=== PATIENT | female | born 1935 | race Caucasian/White ===

== ENCOUNTER 2016-06-08 14:59 | Emergency (ER) | payer MEDICARE, OTHER ==
--- NOTE | 2016-06-08 15:47 | RAD ---
INDICATION: Chest pain COMPARISON: March 25, 2016 TECHNIQUE: An AP portable view obtained at 1540 hours is submitted. FINDINGS: Bones/Soft Tissues: There are no acute bony findings. There is right shoulder arthroplasty Cardiomediastinal: The cardiomediastinal silhouette is normal. Lungs: There are no infiltrates. Pleura: There are no pleural effusions. Other: None IMPRESSION: NO ACTIVE DISEASE.
[2016-06-08 15:50] LABS: Hematocrit 35 % (35-47); Hemoglobin 11.7 g/dl (12.0-16.0); Mean Corpuscular HGB Conc 33 g/dl (31-36); Mean Corpuscular Hemoglobin 33 pg (27-31); Mean Corpuscular Volume 99 fL (80-97); Mean Platelet Volume 7 um3 (7.4-10.4); Red Blood Count 3.55 10^6/ul (4.0-5.4); Red Cell Distribution Width 14 % (10.5-15)
[2016-06-08 16:03] LABS: BUN/Creatinine Ratio 30.3 (8-20); Calcium 9.1 mg/dL (8.6-10.3); EGFR African American 55.7 (>60); EGFR Non-African American 43.3 (>60); Globulin 2.9 g/dL (2-4); Magnesium 1.9 mg/dL (1.9-2.7); Potassium 3.7 mmol/L (3.5-5.0); Total Bilirubin 0.3 mg/dL (0.2-1.0); Total Protein 6.9 g/dL (6.4-8.9)
[2016-06-08 16:05] LABS: Troponin I 0.02 ng/mL (<0.04)
[2016-06-08 16:36] LABS: TSH (Thyroid Stimulating Horm) 4.53 mcIU/mL (0.34-5.60)
[2016-06-08 17:00] LABS: Urine Bacteria Absent (Absent); Urine Bilirubin Negative (Negative); Urine Glucose Negative (Negative); Urine Nitrite Negative (Negative)
[2016-06-08 20:02] VITALS: BP 141/76
--- NOTE | 2016-06-08 22:03 | ED ---
Gavino Alicia Billy, scribed for Christiano Walton MD on 06/08/16 at 1532 . Palpitations / Dysrhythmia - HPI Summary HPI Summary: Patient is an 81 year-old female coming to [facility] presenting with intermittent rapid HR starting at 1230 today. Her symptoms were improved with rest, worse with ambulation. They have improved since onset. She states that she had a moderate CAMPOVERDE at that time, but that has resolved at this time. She denies any CP , SOB, headache, dizziness, nausea, or vomiting. Denies any other symptoms. She states that it felt like a previous episode of afib in November, when she was seen in the ED and cardioverted. - History of Current Complaint Chief Complaint: EDDysrhythmPalp Time Seen by Provider: 06/08/16 15:24 Hx Obtained From: Patient Onset/Duration: Gradual Onset Timing: Intermittent Episodes Lasting: Severity Initially: Moderate Severity Currently: Moderate Character: Fast Aggravating: Exertion Alleviating: Rest - Allergy/Home Medications Allergies/Adverse Reactions: Allergies Allergy/AdvReac Type Severity Reaction Status Date / Time No Known Drug Allergy Allergy See Comment Verified 12/22/15 13:18 Ciprofloxacin AdvReac Nausea Verified 12/22/15 13:17 Diclofenac [From Voltaren] AdvReac GI Upset Verified 12/22/15 13:17 Hydrocodone AdvReac Agitation Verified 12/22/15 13:17 Losartan AdvReac Dizziness Verified 12/22/15 13:17 Sulfamethoxazole AdvReac Nausea Verified 12/22/15 13:17 w/Trimethoprim [From Bactrim] PMH/Surg Hx/FS Hx/Imm Hx Endocrine/Hematology History: Reports: Hx Anemia Cardiovascular History: Reports: Hx Atrial Fibrillation, Hx Hypertension - W/ MEDS GI History: Reports: Hx Gastroesophageal Reflux Disease, Hx Ulcer Musculoskeletal History: Reports: Hx Back Problems, Other Musculoskeletal History - bilateral tkr Neurological History: Reports: Other Neuro Impairments/Disorders - neuropathy- soles of feet, fingertips - Cancer History Cancer Type, Location and Year: Colon (surgery 2011), Breast (surgery 2009) Hx Chemotherapy: Yes - Surgical History Surgery Procedure, Year, and Place: tkr shoulder replacement. stents. cancer ( 2009, 2011) Infectious Disease History: No Infectious Disease History: Denies: Traveled Outside the [place] in Last 30 Days - Family History Known Family History: Positive: Respiratory Disease - mother at 33 with double pneumonia - Social History Alcohol Use: None Hx Substance Use: No Substance Use Type: Reports: None Hx Tobacco Use: No Smoking Status (MU): Never Smoked Tobacco Review of Systems Positive: Palpitations. Negative: Chest Pain Negative: Shortness Of Breath Negative: Vomiting, Nausea Positive: Headache - resolved at this time All Other Systems Reviewed And Are Negative: Yes Physical Exam - Summary Physical Exam Summary: VITAL SIGNS: Reviewed. GENERAL: Patient is a well developed and nourished female who is lying comfortable in the stretcher. Patient is not in any acute respiratory distress. HEAD AND FACE: No signs of trauma. No ecchymosis, hematomas or skull depressions. No sinus tenderness. EYES: PERRLA, EOMI x 2, No injected conjunctiva, no nystagmus. EARS: Hearing grossly intact. Ear canals and tympanic membranes are within normal limits. MOUTH: Oropharynx within normal limits. NECK: Supple, trachea is midline, no adenopathy, no JVD, no carotid bruit, no c- spine tenderness, neck with full ROM. CHEST: Symmetric, no tenderness at palpation LUNGS: Clear to auscultation bilaterally. No wheezing or crackles. CVS: Regular rate and rhythm, S1 and S2 present, no murmurs or gallops appreciated. ABDOMEN: Soft, non-tender. No signs of distention. No rebound no guarding, and no masses palpated. Bowel sounds are normal. EXTREMITIES: FROM in all major joints, no edema, no cyanosis or clubbing. NEURO: Alert and oriented x 3. No acute neurological deficits. Speech is normal and follows commands. SKIN: Dry and warm Triage Information Reviewed: Yes Vital Signs On Initial Exam: Initial Vitals Temp Pulse Resp BP Pulse Ox 98.7 F 75 18 153/92 99 06/08/16 15:07 06/08/16 15:07 06/08/16 15:07 06/08/16 15:07 06/08/16 15:07 Vital Signs Reviewed: Yes Diagnostics - Vital Signs Vital Signs Temp Pulse Resp BP Pulse Ox 06/08/16 15:07 98.7 F 75 18 153/92 99 - Laboratory Lab Results: Lab Results 06/08/16 06/08/16 06/08/16 Range/Units 15:30 15:30 15:30 WBC 7.0 (3.5-10.8) 10^3/ul RBC 3.55 L (4.0-5.4) 10^6/ul Hgb 11.7 L (12.0-16.0) g/dl Hct 35 (35-47) % MCV 99 H (80-97) fL MCH 33 H (27-31) pg MCHC 33 (31-36) g/dl RDW 14 (10.5-15) % Plt Count 293 (150-450) 10^3/ul MPV 7 L (7.4-10.4) um3 Neut % (Auto) 73.5 (38-83) % Lymph % (Auto) 14.5 L (25-47) % [place] % (Auto) 9.3 H (1-9) % Eos % (Auto) 1.4 (0-6) % Baso % (Auto) 1.3 (0-2) % Absolute Neuts (auto) 5.1 (1.5-7.7) 10^3/ul Absolute Lymphs (auto) 1.0 (1.0-4.8) 10^3/ul Absolute Monos (auto) 0.6 (0-0.8) 10^3/ul Absolute Eos (auto) 0.1 (0-0.6) 10^3/ul Absolute Basos (auto) 0.1 (0-0.2) 10^3/ul Absolute Nucleated RBC 0 10^3/ul Nucleated RBC % 0 Sodium 132 L (133-145) mmol/L Potassium 3.7 (3.5-5.0) mmol/L Chloride 98 L (101-111) mmol/L Carbon Dioxide 27 (22-32) mmol/L Anion Gap 7 (2-11) mmol/L BUN 36 H (6-24) mg/dL Creatinine 1.19 H (0.51-0.95) mg/dL Est GFR ( Amer) 55.7 (>60) Est GFR (Non-Af Amer) 43.3 (>60) BUN/Creatinine Ratio 30.3 H (8-20) Glucose 116 H (70-100) mg/dL Lactic Acid 1.0 (0.5-2.0) mmol/L Calcium 9.1 (8.6-10.3) mg/dL Magnesium 1.9 (1.9-2.7) mg/dL Total Bilirubin 0.30 (0.2-1.0) mg/dL AST 25 (13-39) U/L ALT 10 (7-52) U/L Alkaline Phosphatase 63 (34-104) U/L CK-MB (CK-2) 3.7 (0.6-6.3) ng/mL Troponin I 0.02 (<0.04) ng/mL B-Natriuretic Peptide ( - 100) pg/mL Total Protein 6.9 (6.4-8.9) g/dL Albumin 4.0 (3.2-5.2) g/dL Globulin 2.9 (2-4) g/dL Albumin/Globulin Ratio 1.4 (1-3) TSH 4.53 (0.34-5.60) mcIU/mL Urine Color Urine Appearance Urine pH (5-9) Ur Specific [place] (1.010-1.030) Urine Protein (Negative) Urine Ketones (Negative) Urine Blood (Negative) Urine Nitrate (Negative) Urine Bilirubin (Negative) Urine Urobilinogen (Negative) Ur Leukocyte Esterase (Negative) Urine WBC (Auto) (Absent) Urine RBC (Auto) (Absent) Ur Squamous Epith Cells (Absent) Urine Bacteria (Absent) Urine Glucose (Negative) 06/08/16 06/08/16 06/08/16 Range/Units 15:30 15:30 18:23 WBC (3.5-10.8) 10^3/ul RBC (4.0-5.4) 10^6/ul Hgb (12.0-16.0) g/dl Hct (35-47) % MCV (80-97) fL MCH (27-31) pg MCHC (31-36) g/dl RDW (10.5-15) % Plt Count (150-450) 10^3/ul MPV (7.4-10.4) um3 Neut % (Auto) (38-83) % Lymph % (Auto) (25-47) % [place] % (Auto) (1-9) % Eos % (Auto) (0-6) % Baso % (Auto) (0-2) % Absolute Neuts (auto) (1.5-7.7) 10^3/ul Absolute Lymphs (auto) (1.0-4.8) 10^3/ul Absolute Monos (auto) (0-0.8) 10^3/ul Absolute Eos (auto) (0-0.6) 10^3/ul Absolute Basos (auto) (0-0.2) 10^3/ul Absolute Nucleated RBC 10^3/ul Nucleated RBC % Sodium (133-145) mmol/L Potassium (3.5-5.0) mmol/L Chloride (101-111) mmol/L Carbon Dioxide (22-32) mmol/L Anion Gap (2-11) mmol/L BUN (6-24) mg/dL Creatinine (0.51-0.95) mg/dL Est GFR ( Amer) (>60) Est GFR (Non-Af Amer) (>60) BUN/Creatinine Ratio (8-20) Glucose (70-100) mg/dL Lactic Acid (0.5-2.0) mmol/L Calcium (8.6-10.3) mg/dL Magnesium (1.9-2.7) mg/dL Total Bilirubin (0.2-1.0) mg/dL AST (13-39) U/L ALT (7-52) U/L Alkaline Phosphatase (34-104) U/L CK-MB (CK-2) (0.6-6.3) ng/mL Troponin I 0.03 (<0.04) ng/mL B-Natriuretic Peptide 234 H ( - 100) pg/mL Total Protein (6.4-8.9) g/dL Albumin (3.2-5.2) g/dL Globulin (2-4) g/dL Albumin/Globulin Ratio (1-3) TSH (0.34-5.60) mcIU/mL Urine Color Straw Urine Appearance Clear Urine pH 6.0 (5-9) Ur Specific [place] 1.010 (1.010-1.030) Urine Protein Negative (Negative) Urine Ketones Negative (Negative) Urine Blood 1+ H (Negative) Urine Nitrate Negative (Negative) Urine Bilirubin Negative (Negative) Urine Urobilinogen Negative (Negative) Ur Leukocyte Esterase 1+ H (Negative) Urine WBC (Auto) 1+(6-10/hpf) H (Absent) Urine RBC (Auto) 2+(6-10/hpf) H (Absent) Ur Squamous Epith Cells Present H (Absent) Urine Bacteria Absent (Absent) Urine Glucose Negative (Negative) Result Diagrams: 06/08/16 15:30 06/08/16 15:30 Lab Statement: Any lab studies that have been ordered have been reviewed, and results considered in the medical decision making process. - Radiology CXR Xray Interpretation: No Acute Changes Radiology Interpretation Completed By: Radiologist - EKG 1510 EKG Interpretation: NSR 81 bpm, no ST elevation 1754 EKG Interpretation: NSR 61 bpm, no ST elevation Course/Dx - Course Assessment/Plan: Patient is an 81 year-old female coming to [facility] presenting with intermittent rapid HR starting at 1230 today. Her symptoms were improved with rest, worse with ambulation. They have improved since onset. She states that she had a moderate CAMPOVERDE at that time, but that has resolved at this time. She denies any CP, SOB, headache, dizziness, nausea, or vomiting. Denies any other symptoms. She states that it felt like a previous episode of afib in November , when she was seen in the ED and cardioverted. Bloodwork WNL except for slight decrease of Hgb of 11.7, sodium of 132, BUN of 36 and creatinine of 1.19. BNP is 234. Trop #1 is 0.02, and 4-hours later trop #2 is 0.03. The patient continues to be asymptomatic. She has no palpitations or chest pain. Therefore she will be discharged home to follow up with PCP. It seems she may have had an episode of a-fib with RVR. - Diagnoses Differential Diagnosis/HQI/PQRI: Positive: Paroxymal SVT, V-Tach, Other - Atrial fibrillation Provider Diagnoses: Atrial fibrillation with RVR Discharge - Discharge Plan Condition: Stable Disposition: HOME Patient Education Materials: Atrial Fibrillation (ED) Referrals: Rhiannon Astorga MD [Primary Care Provider] - The documentation as recorded by the Gavino ribera Billy accurately reflects the service I personally performed and the decisions made by me, Christiano Walton MD.
== END 2016-06-08 19:59 | disposition home or self-care (01) ==
LOC: ED 14:59
DX: I48.91 Unspecified atrial fibrillation (principal); I10 Essential (primary) hypertension; K21.9 Gastro-esophageal reflux disease without esophagitis; Z88.2 Allergy status to sulfonamides; Z88.1 Allergy status to other antibiotic agents
CPT/HCPCS: 36415; 71010; 80053; 81003; 81015; 82553; 83605; 83735; 83880; 84443; 84484; 85025; 87086; 93005; 99282

== ENCOUNTER 2016-08-18 12:40 | Emergency (ER) | payer MEDICARE, OTHER ==
[2016-08-18 13:03] LABS: Hematocrit 34 % (35-47); Hemoglobin 11.3 g/dl (12.0-16.0); Mean Corpuscular HGB Conc 33 g/dl (31-36); Mean Corpuscular Hemoglobin 33 pg (27-31); Mean Corpuscular Volume 98 fL (80-97); Mean Platelet Volume 7 um3 (7.4-10.4); Red Blood Count 3.45 10^6/ul (4.0-5.4); Red Cell Distribution Width 15 % (10.5-15); White Blood Count 7.4 10^3/ul (3.5-10.8)
[2016-08-18 13:18] LABS: Albumin 3.9 g/dL (3.2-5.2); BUN/Creatinine Ratio 27.5 (8-20); Calcium 9.2 mg/dL (8.6-10.3); EGFR African American 61.7 (>60); EGFR Non-African American 47.9 (>60); Globulin 2.9 g/dL (2-4); Magnesium 1.8 mg/dL (1.9-2.7); Potassium 3.8 mmol/L (3.5-5.0); Total Bilirubin 0.5 mg/dL (0.2-1.0); Total Protein 6.8 g/dL (6.4-8.9)
[2016-08-18 13:19] LABS: Troponin I 0.03 ng/mL (<0.04)
[2016-08-18] MEDS ORDERED: Potassium Chlor TAB* 20 MEQ TAB.ER PO ONE (13:38)
[2016-08-18] MEDS ORDERED: Magnesium Oxide TAB* 400 MG PO ONE (13:40)
--- NOTE | 2016-08-18 13:42 | ED ---
Siobhan Alicia Janilya, scribed for Kayy De La Garza MD on 08/18/16 at 1314 . HPI Cardiac - HPI Summary HPI Summary: A 81 y/o female came in to [facility] presenting w/ a gradual onset of constant afib that occurred today. Pt states today at sikhism, pt broke out in rapid afib. She immediately recognized that she was having afib. Pt denies CP, SOB. Pt took Tylenol in the morning at 0500 as she normally does. - History of Current Complaint Chief Complaint: EDGeneral Stated Complaint: AFIB Time Seen by Provider: 08/18/16 12:47 Hx Obtained From: Patient Onset/Duration: Started Hours Ago, Atraumatic, Resolved - before being seen Timing: Constant Initial Severity: Moderate Current Severity: Moderate Pain Intensity: 0 Aggravating Factor(s): Nothing Alleviating Factor(s): Nothing Associated Signs and Symptoms: Negative: Chest Pain, Shortness of Breath - Allergy/Home Medications Allergies/Adverse Reactions: Allergies Allergy/AdvReac Type Severity Reaction Status Date / Time Ciprofloxacin AdvReac Nausea Verified 08/18/16 12:58 Diclofenac [From Voltaren] AdvReac GI Upset Verified 08/18/16 12:58 Hydrocodone AdvReac Agitation Verified 08/18/16 12:58 Losartan AdvReac Dizziness Verified 08/18/16 12:58 Sulfamethoxazole AdvReac Nausea Verified 08/18/16 12:58 w/Trimethoprim [From Bactrim] PMH/Surg Hx/FS Hx/Imm Hx Previously Healthy: Yes Endocrine/Hematology History: Reports: Hx Anemia Cardiovascular History: Reports: Hx Atrial Fibrillation, Hx Hypertension - W/ MEDS GI History: Reports: Hx Gastroesophageal Reflux Disease, Hx Ulcer Musculoskeletal History: Reports: Hx Back Problems, Other Musculoskeletal History - bilateral tkr Neurological History: Reports: Other Neuro Impairments/Disorders - neuropathy- soles of feet, fingertips - Cancer History Cancer Type, Location and Year: Colon (surgery 2011), Breast (surgery 2009) Hx Chemotherapy: Yes - Surgical History Surgery Procedure, Year, and Place: tkr shoulder replacement. stents. cancer ( 2009, 2011) Infectious Disease History: No Infectious Disease History: Denies: Traveled Outside the [place] in Last 30 Days - Family History Known Family History: Positive: Respiratory Disease - mother at 33 with double pneumonia - Social History Occupation: Retired Alcohol Use: None Hx Substance Use: No Substance Use Type: Reports: None Hx Tobacco Use: No Smoking Status (MU): Never Smoked Tobacco Review of Systems Positive: Other - afib. Negative: Chest Pain Negative: Shortness Of Breath All Other Systems Reviewed And Are Negative: Yes Physical Exam Triage Information Reviewed: Yes Vital Signs On Initial Exam: Initial Vitals Temp Pulse Resp BP Pulse Ox 98.6 F 77 19 157/90 97 08/18/16 12:45 08/18/16 12:45 08/18/16 12:45 08/18/16 12:45 08/18/16 12:45 Vital Signs Reviewed: Yes Appearance: Positive: Well-Appearing, No Pain Distress Skin: Positive: Warm, Skin Color Reflects Adequate Perfusion, Dry Eyes: Positive: EOMI, EM ENT: Positive: Pharynx normal, TMs normal Neck: Positive: Supple, Nontender Respiratory/Lung Sounds: Positive: Clear to Auscultation, Breath Sounds Present. Negative: Rales, Rhonchi, Wheezes Cardiovascular: Positive: RRR. Negative: Murmur, Rub, Other - no gallops Abdomen Description: Positive: Nontender, Soft. Negative: Distended, Guarding, Other: - no rebound Musculoskeletal: Positive: Strength/ROM Intact. Negative: Edema Left, Edema Right Neurological: Positive: Sensory/Motor Intact, Alert, Oriented to Person Place, Time, CN Intact II-III Psychiatric: Positive: Affect/Mood Appropriate Diagnostics - Vital Signs Vital Signs Temp Pulse Resp BP Pulse Ox 08/18/16 12:53 76 22 97 08/18/16 12:45 98.6 F 77 19 157/90 97 - Laboratory Lab Results: Lab Results 08/18/16 08/18/16 08/18/16 Range/Units 12:55 12:55 12:55 WBC 7.4 (3.5-10.8) 10^3/ul RBC 3.45 L (4.0-5.4) 10^6/ul Hgb 11.3 L (12.0-16.0) g/dl Hct 34 L (35-47) % MCV 98 H (80-97) fL MCH 33 H (27-31) pg MCHC 33 (31-36) g/dl RDW 15 (10.5-15) % Plt Count 288 (150-450) 10^3/ul MPV 7 L (7.4-10.4) um3 Neut % (Auto) 73.9 (38-83) % Lymph % (Auto) 12.3 L (25-47) % [place] % (Auto) 8.7 (1-9) % Eos % (Auto) 3.0 (0-6) % Baso % (Auto) 2.1 H (0-2) % Absolute Neuts (auto) 5.5 (1.5-7.7) 10^3/ul Absolute Lymphs (auto) 0.9 L (1.0-4.8) 10^3/ul Absolute Monos (auto) 0.6 (0-0.8) 10^3/ul Absolute Eos (auto) 0.2 (0-0.6) 10^3/ul Absolute Basos (auto) 0.2 (0-0.2) 10^3/ul Absolute Nucleated RBC 0 10^3/ul Nucleated RBC % 0 Sodium 131 L (133-145) mmol/L Potassium 3.8 (3.5-5.0) mmol/L Chloride 96 L (101-111) mmol/L Carbon Dioxide 27 (22-32) mmol/L Anion Gap 8 (2-11) mmol/L BUN 30 H (6-24) mg/dL Creatinine 1.09 H (0.51-0.95) mg/dL Est GFR ( Amer) 61.7 (>60) Est GFR (Non-Af Amer) 47.9 (>60) BUN/Creatinine Ratio 27.5 H (8-20) Glucose 107 H (70-100) mg/dL Lactic Acid 0.9 (0.5-2.0) mmol/L Calcium 9.2 (8.6-10.3) mg/dL Magnesium 1.8 L (1.9-2.7) mg/dL Total Bilirubin 0.50 (0.2-1.0) mg/dL AST 90 H (13-39) U/L ALT 58 H (7-52) U/L Alkaline Phosphatase 74 (34-104) U/L Troponin I 0.03 (<0.04) ng/mL Total Protein 6.8 (6.4-8.9) g/dL Albumin 3.9 (3.2-5.2) g/dL Globulin 2.9 (2-4) g/dL Albumin/Globulin Ratio 1.3 (1-3) TSH Pending Result Diagrams: 08/18/16 12:55 08/18/16 12:55 Lab Statement: Any lab studies that have been ordered have been reviewed, and results considered in the medical decision making process. - EKG 1301 Cardiac Rate: NL - 69 bpm EKG Rhythm: Sinus Rhythm ST Segment: Normal Disposition - Course Course Of Treatment: pt with hx of intermittent afib that pt noted in sikhism today, it broke before pt arrived. normal ekg with sl low mg and borderline potassium, repleting both now and then home - Diagnoses Provider Diagnoses: Afib Discharge - Discharge Plan Condition: Stable Disposition: HOME The documentation as recorded by the Siobhan ribera Janilya accurately reflects the service I personally performed and the decisions made by me, Kayy De La Garza MD.
[2016-08-18 13:58] LABS: TSH (Thyroid Stimulating Horm) 4.91 mcIU/mL (0.34-5.60)
[2016-08-18 14:06] VITALS: BP 160/94
--- NOTE | 2016-08-18 14:13 | RAD ---
INDICATION: Atrial fibrillation COMPARISON: Most recent comparison chest x-rays dated June 08, 2016 TECHNIQUE: Single AP portable view of the chest was obtained. FINDINGS: Image quality is compromised due to the relative inferiority of a portable chest x-ray. Similar the previous chest x-ray there is a moderate degree of cardiomegaly as well as coarse calcification overlying the arch of the aorta. The lungs are grossly clear. There is no evidence of a large pleural effusion. The patient's prosthetic right shoulder appears to be anatomically aligned in the AP projection and is unchanged from the previous x-ray. IMPRESSION: No radiographic evidence for acute cardiopulmonary abnormality on this portable chest x-ray.
== END 2016-08-18 14:05 | disposition home or self-care (01) ==
LOC: ED 12:40
DX: I48.91 Unspecified atrial fibrillation (principal)
CPT/HCPCS: 36415; 71010; 80053; 83605; 83735; 84443; 84484; 85025; 93005; 99283; A9270-GY

== ENCOUNTER 2018-12-12 23:13 | Observation (INO) | payer MEDICARE, OTHER ==
[2018-12-13 02:47] LABS: ABS Basophils 0.1 10^3/ul (0-0.2); ABS Eosinophils 0.1 10^3/ul (0-0.6); ABS Monocytes 0.7 10^3/ul (0-0.8); ABS Neutrophils 5.3 10^3/ul (1.5-7.7); Eosinophil % 1.2 %; Hematocrit 37 % (35-47); Hemoglobin 12.5 g/dL (12.0-16.0); Lymphocyte % 14.5 %; Mean Corpuscular HGB Conc 34 g/dL (31-36); Mean Corpuscular Hemoglobin 35 pg (27-31); Mean Corpuscular Volume 103 fL (80-97); Mean Platelet Volume 6.8 fL (7.4-10.4); Platelet Count 286 10^3/uL (150-450); Red Blood Count 3.59 10^6 /uL (3.70-4.87); Red Cell Distribution Width 15 % (10-15); White Blood Count 7.2 10^3/uL (3.5-10.8)
[2018-12-13 02:53] LABS: Activated Partial Thrombo Time 40.9 seconds (26.0-38.0); INR 1.96 (0.82-1.09)
[2018-12-13 03:03] LABS: Albumin/Globulin Ratio 1.4 (1-3); BUN/Creatinine Ratio 23.8 (8-20); C Reactive Protein 3.12 mg/L (<8.01); Calcium 9.3 mg/dL (8.6-10.3); EGFR Non-African American 52.1 (>60); Globulin 2.9 g/dL (2-4); Potassium 4.2 mmol/L (3.5-5.0); Total Bilirubin 0.5 mg/dL (0.2-1.0); Total Protein 6.9 g/dL (6.4-8.9)
[2018-12-13 03:04] LABS: Troponin I 0.03 ng/mL (<0.04)
[2018-12-13] MEDS ORDERED: Furosemide IV* 10 MG/ML VIAL (40 MG) IV SLOW PU ONE (04:49)
--- NOTE | 2018-12-13 05:00 | ED ---
Shortness of Breath - HPI Summary HPI Summary: Patient is a 83 y/o F presenting to ED with complaints of SOB that onset in the evening, 12/12/18. She additionally reports sore throat all day 12/12/18. Patient denies any pain. She reports that she does not take Lasix pills. PMHx of anemia, afib, HTN, GERD, ulcer, neuropathy. She denies tobacco, alcohol ,and substance usage. On triage, pain is denied, nothing is noted to aggravate/alleviate Sx. Home medications and allergies are reviewed. - History of Current Complaint Chief Complaint: EDShortnessOfBreath Time Seen by Provider: 12/13/18 01:28 Hx Obtained From: Patient Onset/Duration: Lasting Hours, Still Present Timing: Constant Current Severity: None Aggravating Factors: Nothing Alleviating Factors: Nothing - Allergy/Home Medications Allergies/Adverse Reactions: Allergies Allergy/AdvReac Type Severity Reaction Status Date / Time ciprofloxacin Allergy Nausea And Verified 12/13/18 00:59 Vomiting diclofenac [From Voltaren] Allergy GI Upset Verified 12/13/18 01:00 hydrocodone Allergy Agitation Verified 12/13/18 01:00 losartan Allergy Dizziness Verified 12/13/18 01:01 sulfamethoxazole Allergy Nausea And Verified 12/13/18 01:01 [From Bactrim] Vomiting trimethoprim [From Bactrim] Allergy Nausea And Verified 12/13/18 01:01 Vomiting Home Medications: Home Medications ALPRAZolam [Xanax] 0.25 mg PO Q6H 12/13/18 [History Confirmed 12/13/18] Calcium + D Soft Chewable Tab 1 tab PO DAILY 12/13/18 [History Confirmed ] Diclofenac 1% GEL (NF) [Voltaren 1% GEL (NF)] 1 applic TOPICAL QID 12/13/18 [ History Confirmed 12/13/18] Ferrous Sulfate TAB* 325 mg PO BID 12/13/18 [History Confirmed 12/13/18] Torsemide 10 mg PO DAILY 12/13/18 [History Confirmed 12/13/18] PMH/Surg Hx/FS Hx/Imm Hx Endocrine/Hematology History: Reports: Hx Anemia Cardiovascular History: Reports: Hx Atrial Fibrillation, Hx Hypertension - W/ MEDS GI History: Reports: Hx Gastroesophageal Reflux Disease, Hx Ulcer Musculoskeletal History: Reports: Hx Back Problems, Other Musculoskeletal History - bilateral tkr Neurological History: Reports: Other Neuro Impairments/Disorders - neuropathy- soles of feet, fingertips - Cancer History Cancer Type, Location and Year: Colon (surgery 2011), Breast (surgery 2009) Hx Chemotherapy: Yes - Surgical History Surgery Procedure, Year, and Place: tkr shoulder replacement. stents. cancer ( 2009, 2011) Infectious Disease History: No Infectious Disease History: Denies: Traveled Outside the [place] in Last 30 Days - Family History Known Family History: Positive: Respiratory Disease - mother at 33 with double pneumonia - Social History Alcohol Use: None Hx Substance Use: No Substance Use Type: Reports: None Hx Tobacco Use: No Smoking Status (MU): Never Smoked Tobacco Review of Systems Negative: Fever - on vitals, temp 98.8 F Positive: Shortness Of Breath, Cough All Other Systems Reviewed And Are Negative: Yes Physical Exam - Summary Physical Exam Summary: VITAL SIGNS: Reviewed. GENERAL: Patient is a well-developed and nourished female who is lying comfortable in the stretcher. Patient is not in any acute respiratory distress. HEAD AND FACE: No signs of trauma. No ecchymosis, hematomas or skull depressions. No sinus tenderness. EYES: PERRLA, EOMI x 2, No injected conjunctiva, no nystagmus. EARS: Hearing grossly intact. Ear canals and tympanic membranes are within normal limits. MOUTH: Oropharynx within normal limits. NECK: Supple, trachea is midline, no adenopathy, no carotid bruit, no c-spine tenderness, neck with full ROM; bilateral JVD is noted. CHEST: Symmetric, no tenderness at palpation LUNGS: Bilateral rales over lung bases. No wheezing or crackles. CVS: Regular rate and rhythm, S1 and S2 present, no murmurs or gallops appreciated. ABDOMEN: Soft, non-tender. No signs of distention. No rebound no guarding, and no masses palpated. Bowel sounds are normal. EXTREMITIES: FROM in all major joints, no edema, no cyanosis or clubbing. NEURO: Alert and oriented x 3. No acute neurological deficits. Speech is normal and follows commands. SKIN: Dry and warm Triage Information Reviewed: Yes Vital Signs On Initial Exam: Initial Vitals Temp Pulse Resp BP Pulse Ox 98.8 F 80 16 160/92 96 12/12/18 23:15 12/12/18 23:15 12/12/18 23:15 12/12/18 23:15 12/12/18 23:15 Vital Signs Reviewed: Yes Diagnostics - Vital Signs Vital Signs Temp Pulse Resp BP Pulse Ox 12/13/18 03:47 25 160/102 12/13/18 03:16 80 24 170/112 97 12/13/18 03:00 80 20 98 12/13/18 02:46 78 25 161/108 97 12/13/18 02:16 80 26 167/113 96 12/13/18 02:12 80 18 167/113 96 12/13/18 02:11 80 23 166/125 96 12/13/18 02:00 80 19 96 12/13/18 01:46 80 22 164/132 96 12/13/18 01:16 80 23 157/101 94 12/13/18 01:01 80 20 96 12/13/18 00:46 80 145/113 96 12/12/18 23:15 98.8 F 80 16 160/92 96 - Laboratory Lab Results: Lab Results 12/13/18 12/13/18 12/13/18 Range/Units 02:38 02:38 02:38 WBC 7.2 (3.5-10.8) 10^3/uL RBC 3.59 L (3.70-4.87) 10^6 /uL Hgb 12.5 (12.0-16.0) g/dL Hct 37 (35-47) % MCV 103 H (80-97) fL MCH 35 H (27-31) pg MCHC 34 (31-36) g/dL RDW 15 (10-15) % Plt Count 286 (150-450) 10^3/uL MPV 6.8 L (7.4-10.4) fL Neut % (Auto) 73.7 % Lymph % (Auto) 14.5 % [place] % (Auto) 9.7 % Eos % (Auto) 1.2 % Baso % (Auto) 0.9 % Absolute Neuts (auto) 5.3 (1.5-7.7) 10^3/ul Absolute Lymphs (auto) 1.0 (1.0-4.8) 10^3/ul Absolute Monos (auto) 0.7 (0-0.8) 10^3/ul Absolute Eos (auto) 0.1 (0-0.6) 10^3/ul Absolute Basos (auto) 0.1 (0-0.2) 10^3/ul Absolute Nucleated RBC 0.0 10^3/ul Nucleated RBC % 0.0 INR (Anticoag Therapy) 1.96 H (0.82-1.09) APTT 40.9 H (26.0-38.0) seconds Sodium 133 L (135-145) mmol/L Potassium 4.2 (3.5-5.0) mmol/L Chloride 100 L (101-111) mmol/L Carbon Dioxide 25 (22-32) mmol/L Anion Gap 8 (2-11) mmol/L BUN 24 (6-24) mg/dL Creatinine 1.01 H (0.51-0.95) mg/dL Est GFR ( Amer) 63.0 (>60) Est GFR (Non-Af Amer) 52.1 (>60) BUN/Creatinine Ratio 23.8 H (8-20) Glucose 116 H (70-100) mg/dL Calcium 9.3 (8.6-10.3) mg/dL Total Bilirubin 0.50 (0.2-1.0) mg/dL AST 71 H (13-39) U/L ALT 46 (7-52) U/L Alkaline Phosphatase 111 H (34-104) U/L Troponin I 0.03 (<0.04) ng/mL C-Reactive Protein 3.12 (<8.01) mg/L B-Natriuretic Peptide (<=100) pg/mL Total Protein 6.9 (6.4-8.9) g/dL Albumin 4.0 (3.2-5.2) g/dL Globulin 2.9 (2-4) g/dL Albumin/Globulin Ratio 1.4 (1-3) 12/13/ Range/Units 02:38 WBC (3.5-10.8) 10^3/uL RBC (3.70-4.87) 10^6 /uL Hgb (12.0-16.0) g/dL Hct (35-47) % MCV (80-97) fL MCH (27-31) pg MCHC (31-36) g/dL RDW (10-15) % Plt Count (150-450) 10^3/uL MPV (7.4-10.4) fL Neut % (Auto) % Lymph % (Auto) % [place] % (Auto) % Eos % (Auto) % Baso % (Auto) % Absolute Neuts (auto) (1.5-7.7) 10^3/ul Absolute Lymphs (auto) (1.0-4.8) 10^3/ul Absolute Monos (auto) (0-0.8) 10^3/ul Absolute Eos (auto) (0-0.6) 10^3/ul Absolute Basos (auto) (0-0.2) 10^3/ul Absolute Nucleated RBC 10^3/ul Nucleated RBC % INR (Anticoag Therapy) (0.82-1.09) APTT (26.0-38.0) seconds Sodium (135-145) mmol/L Potassium (3.5-5.0) mmol/L Chloride (101-111) mmol/L Carbon Dioxide (22-32) mmol/L Anion Gap (2-11) mmol/L BUN (6-24) mg/dL Creatinine (0.51-0.95) mg/dL Est GFR ( Amer) (>60) Est GFR (Non-Af Amer) (>60) BUN/Creatinine Ratio (8-20) Glucose (70-100) mg/dL Calcium (8.6-10.3) mg/dL Total Bilirubin (0.2-1.0) mg/dL AST (13-39) U/L ALT (7-52) U/L Alkaline Phosphatase (34-104) U/L Troponin I (<0.04) ng/mL C-Reactive Protein (<8.01) mg/L B-Natriuretic Peptide 676 H (<=100) pg/mL Total Protein (6.4-8.9) g/dL Albumin (3.2-5.2) g/dL Globulin (2-4) g/dL Albumin/Globulin Ratio (1-3) Result Diagrams: 12/13/18 02:38 12/13/18 02:38 Lab Statement: Any lab studies that have been ordered have been reviewed, and results considered in the medical decision making process. - Radiology CXR Radiology Interpretation Completed By: ED Physician Summary of Radiographic Findings: CXR showed bilateral venous congestion with cardiomegaly consistent with CHF, pending official report. - EKG 0319 Cardiac Rate: Other Rate - paced rhythm with rate of 80 BPM Summary of EKG Findings: EKG showed rhythm with rate of 80 BPM Course/Dx - Course Course Of Treatment: Patient is a 83 y/o F presenting to ED with complaints of SOB that onset in the evening, 12/12/18. She additionally reports sore throat all day 12/12/18. Patient denies any pain. She reports that she does not take Lasix pills. PMHx of anemia, afib, HTN, GERD, ulcer, neuropathy. He denies tobacco, alcohol ,and substance usage. Patient was given 40 mg Lasix IV. Labs showed RBC 3.59, MCV 103, MCH 35, PMV 6.8, INR 1.96, APTT 40.9 sodium 133, chloride 100, creatinine 1.01, BUN/creatinine ratio 23.8, glucose 116, AST 71, alk phos 111, trop 0.03, BNP 676. On physical exam, bilateral rales over lung bases. Bilateral JVD. EKG showed paced rhythm with rate of 80 BPM. CXR showed bilateral venous congestion with cardiomegaly consistent with CHF. Patient's case was discussed with Dr. Barillas, Dr. Barillas accepts for admission. - Diagnoses Provider Diagnoses: CHF (congestive heart failure) - Physician Notifications Discussed Care of Patient With: Gregory Barillas Time Discussed With Above Provider: 04:53 Instructed by Provider To: Other - Patient's case was discussed with Dr. Barillas, Dr. Barillas accepts for admission. Discharge - Sign-Out/Discharge Documenting (check all that apply): Patient Departure - admit Patient Received Moderate/Deep Sedation with Procedure: No - Discharge Plan Condition: Stable Disposition: ADMITTED TO [facility] Referrals: Rhiannon Astorga MD [Primary Care Provider] - - Attestation Statements Document Initiated by Scribe: Yes Documenting Scribe: MADHAVI EPPS Provider For Whom Rolan is Documenting (Include Credential): ARUNA BARRY MD Scribe Attestation: MADHAVI Alicia, scribed for ARUNA BARRY MD on 12/13/18 at 0614. Status of Scribe Document: Ready
[2018-12-13] MEDS ORDERED: Acetaminophen TAB* 325 MG PO PRN (06:10)
[2018-12-13] MEDS ORDERED: Ondansetron INJ* 2 MG/ML VIAL IV PRN (06:10)
[2018-12-13] MEDS ORDERED: Al Hydrox/Mg Hydrox/Simet LIQ* 30 ML UDC PO PRN (06:10)
[2018-12-13] MEDS ORDERED: Senna TAB PO PRN (06:10)
[2018-12-13] MEDS ORDERED: Nitroglycerin TAB 0.4 MG* 0.4 MG TAB SL PRN (06:32)
[2018-12-13] MEDS ORDERED: hydrALAZINE IV* 20 MG/ML VIAL IV SLOW PU PRN (06:36)
[2018-12-13] MEDS ORDERED: Enoxaparin(*) 40 MG/0.4 ML SYR SUBCUT SCH (07:00)
[2018-12-13] MEDS ORDERED: ALPRAZolam TAB* 0.25 MG PO SCH (07:00)
[2018-12-13] MEDS ORDERED: Rivaroxaban TAB(*) 20 MG TAB PO SCH (09:00)
[2018-12-13] MEDS ORDERED: Fluticasone NASAL SPRAY 50MCG* 16 gm SPRAY BTL BOTH NARES SCH ×2 (09:00→21:00)
[2018-12-13] MEDS ORDERED: Ramipril CAP* 10 MG PO SCH (09:00)
[2018-12-13] MEDS: Famotidine TAB* 20 MG PO SCH ×2 (10:13→21:23)
[2018-12-13] MEDS: Atenolol TAB* 50 MG PO SCH ×2 (10:13→21:23)
[2018-12-13] MEDS: Torsemide TAB 10 MG PO SCH (10:13)
[2018-12-13] MEDS: Clopidogrel TAB* 75 MG PO SCH (10:13)
[2018-12-13] MEDS: Calcium/Vitamin D TAB 250/125* TAB PO SCH (10:15)
[2018-12-13] MEDS: Atorvastatin* 10 MG TAB PO SCH (10:15)
[2018-12-13] MEDS: Ferrous Sulfate TAB* 325 MG PO SCH ×2 (10:15→21:23)
[2018-12-13] MEDS: Multivitamins/Minerals TAB PO SCH (10:15)
--- NOTE | 2018-12-13 10:41 | HP ---
CONTINUATION ADDENDUM NOW INCLUDED ON THIS REPORT CC: Dr. Astorga * HISTORY AND PHYSICAL: DATE OF ADMISSION: 12/13/18 PROVIDER: NAGA Williamson. PRIMARY CARE PROVIDER: Dr. Astorga. ATTENDING PHYSICIAN WHILE IN THE HOSPITAL: Gregory Barillas MD * (dictated by NAGA Williamson). OUTPATIENT MERCHANDISING LEAD: Dr. Reyes. HISTORY OF PRESENT ILLNESS: Demi Garza is an 83-year-old white female with past medical history significant for coronary artery disease, status post 7 stents, hypertension, atrial fibrillation, status post permanent pacemaker, history of breast cancer, history of colon cancer, and heart failure with preserved ejection fraction, who presented to the emergency department complaining of shortness of breath with exertion and talking. This suddenly started happening during the evening yesterday when the patient was getting ready for bed. She was not having this shortness of breath with exertion over the course of several days. It just had onset today. The patient notes that she has had increased swelling in her lower extremities for the last several weeks. She reportedly had an echocardiogram in the outpatient setting 1 to 2 months ago and the patient reports that findings were "good." The patient denies fever, chills, chest pain, cough, abdominal pain, nausea or vomiting. Additionally, the patient notes that her hydrochlorothiazide was stopped in September or October at her primary care appointment. Additionally, she denies dizziness and lightheadedness. She does not experience any shortness of breath at rest. ED COURSE: The patient arrived to the emergency department, her temperature was 98.8 degrees Fahrenheit, heart rate 80 beats per minute, respiratory rate 16 , oxygen saturation 96% on room air, blood pressure 160/92. PAST MEDICAL HISTORY: 1. Coronary artery disease, status post 7 stents. 2. Heart failure with preserved ejection fraction. 3. Atrial fibrillation, status post permanent pacemaker approximately 2 years ago. 4. History of breast cancer, status post chemo and right mastectomy. 5. Colon cancer, status post chemo. 6. Hypertension. 7. Anxiety. 8. Depression. 9. GERD. 10. Lumbar spinal stenosis. 11. Osteoarthritis. 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 PAST SURGICAL HISTORY: 1. Tonsillectomy. 2. Adenoidectomy. 3. Right side radical mastectomy. 4. Permanent pacemaker placement approximately 2 years ago. 5. Bilateral knee arthroplasties. 6. Bilateral shoulder arthroplasties. 7. Hysterectomy without oophorectomy. FAMILY HISTORY: Mother in her 30s due to pneumonia shortly after childbirth. Father in his 70s due to complications related to alcohol use disorder. SOCIAL HISTORY: The patient denies tobacco use and has never been a smoker. The patient denies drug use and alcohol use. 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 The patient is and had 5 children. CONTINUATION ADDENDUM: HOME MEDICATIONS: 1. Torsemide 10 mg p.o. daily. 2. Ferrous sulfate 325 mg p.o. b.i.d. 3. Zolpidem 5 mg p.o. at bedtime. 4. Zocor 20 mg p.o. daily. 5. Tramadol/acetaminophen 1 tab p.o. q.6 hours p.r.n. pain. 6. Xarelto 20 mg p.o. daily. 7. Ramipril 10 mg p.o. daily. 8. Nitroglycerine 0.4 mg SL p.r.n. angina. 9. Fluticasone 2 sprays both nares daily. 10. Pepcid 20 mg p.o. b.i.d. 11. Diclofenac gel, 1 topical application q.i.d. 12. Pumpkin seed extract/soy germ 1 tab p.o. b.i.d. 13. Multivitamin 1 tab p.o. daily. 14. Plavix 75 mg p.o. daily. 15. Calcium plus vitamin D chewable tab. 16. Atenolol 50 mg p.o. b.i.d. 17. Alprazolam 0.25 mg p.o. q.6 hours. ALLERGIES: Reaction of nausea and vomiting to CIPROFLOXACIN and BACTRIM. Reaction of GI upset to DICLOFENAC. Reaction of dizziness to LOSARTAN. Reaction of agitation to HYDROCODONE. SOCIAL HISTORY: The patient would like her daughter, Nora Patterson, to be her surrogate medical decision maker should she need one. Her phone number is [phone]. REVIEW OF SYSTEMS: An 11-point review of systems was completed and all pertinent positives and negatives are as above in the HPI. All other systems are negative. PHYSICAL EXAMINATION GENERAL: Thin, elderly white female, sitting upright in hospital bed, appearing comfortable, in no acute distress. HEENT: Head: Normocephalic, atraumatic. Eyes: PERRL. Sclerae anicteric. ENT: Mucous membranes moist. NECK: Supple. LUNGS: Faint crackles at bilateral lungs bases. Chest expansion symmetrical. Not respiring with accessary muscles. Some dyspnea after long periods of conversation. CARDIO: Regular rate and rhythm, without murmurs, rubs or gallops. ABDOMEN: Soft, nontender, nondistended without suprapubic tenderness. EXTREMITIES: +1 pedal edema bilaterally. No clubbing or cyanosis. NEUROLOGIC: The patient is alert and oriented x3. No focal deficits. Able to move all 4 extremities. SKIN: Warm, dry, and intact. DIAGNOSTIC STUDIES/LAB DATA: Chest x-ray appears, by my read, to have some vascular congestion similar to previous chest x-ray in 2017. Echocardiogram: Ventricularly paced rhythm, 80 beats per minute, which is changed from previous EKG in the system because the patient had pacemaker placed during the interval. White blood cells 7.2, hemoglobin 12.5, hematocrit 37, platelets 286. INR 1.96. Sodium 133, potassium 4.2, chloride 100, carbon dioxide 25, anion gap 8, BUN 24, creatinine 1.01, glucose 116. Total bili 0.5, AST 71, ALT 46. BNP 676. ASSESSMENT AND PLAN: Demi Garza is an 83-year-old white female with past medical history significant for heart failure with preserved ejection fraction; coronary artery disease, x7 stents; atrial fibrillation, status post pacemaker; hypertension; anxiety and depression, who presents to emergency department complaining of exertional shortness of breath. The patient will be admitted OBV for: 1. Decompensated congestive heart failure. The patient received 40 mg of IV Lasix in the emergency department. I will continue her home torsemide, lisinopril to replace a ramipril and atenolol. The patient was within the last 2 months discontinued her hydrochlorothiazide, which may be contributing to her decompensation of her congestive heart failure. However, she does have hyponatremia, which appears chronic, which would likely be worsened if thiazide was restarted. I have ordered a transthoracic echocardiogram to evaluate if there are any changes. BNP is elevated and she does have increased lower extremity edema. She also has crackles on lung exam. 2. Hypertension. The patient is hypertensive, multiple episodes during this ED department. I will continue her home atenolol and lisinopril instead of ramipril and I have ordered p.r.n. hydralazine for systolic blood pressure over 160. 3. Coronary artery disease. Continue the patient's p.r.n. nitroglycerin, Plavix, atenolol, and lisinopril in lieu of her home ramipril, and atorvastatin instead of her home simvastatin. 4. Atrial fibrillation. The patient is ventricularly paced at this moment. I will continue her home atenolol and Xarelto. 5. Gastroesophageal reflux disease. We will continue the patient's home Pepcid. 6. FEN. I have ordered heart healthy diet without caffeine and electrolytes. She has mild hypokalemia, which appears to be chronic and we will continue to monitor this. 7. DVT prophylaxis. The patient is fully anticoagulated on Xarelto. 8. Code status: The patient is DNR/DNI and her MOLST has been updated. TIME SPENT: Approximately 45 minutes was spent on this admission, approximately half of that time was spent at bedside. This case has been reviewed by attending, Dr. Gregory Barillas, and he agrees with plan of care. NAGA WILLIAMSON [id number]/CPS #: [id number]/CPS #: [id number] MIRI
[2018-12-13] MEDS ORDERED: Furosemide IV* 10 MG/ML 2 ML VIAL (20 MG) IV ONE (12:56)
[2018-12-13] MEDS: Ramipril CAP* 10 MG PO SCH (13:15)
[2018-12-13] MEDS: Rivaroxaban TAB(*) 20 MG TAB PO SCH (13:16)
--- NOTE | 2018-12-13 14:04 | HP ---
HISTORY AND PHYSICAL: ADDENDUM: HOME MEDICATIONS: 1. Torsemide 10 mg p.o. daily. 2. Ferrous sulfate 325 mg p.o. b.i.d. 3. Zolpidem 5 mg p.o. at bedtime. 4. Zocor 20 mg p.o. daily. 5. Tramadol/acetaminophen 1 tab p.o. q.6 hours p.r.n. pain. 6. Xarelto 20 mg p.o. daily. 7. Ramipril 10 mg p.o. daily. 8. Nitroglycerine 0.4 mg SL p.r.n. angina. 9. Fluticasone 2 sprays both nares daily. 10. Pepcid 20 mg p.o. b.i.d. 11. Diclofenac gel, 1 topical application q.i.d. 12. Pumpkin seed extract/soy germ 1 tab p.o. b.i.d. 13. Multivitamin 1 tab p.o. daily. 14. Plavix 75 mg p.o. daily. 15. Calcium plus vitamin D chewable tab. 16. Atenolol 50 mg p.o. b.i.d. 17. Alprazolam 0.25 mg p.o. q.6 hours. ALLERGIES: Reaction of nausea and vomiting to CIPROFLOXACIN and BACTRIM. Reaction of GI upset to DICLOFENAC. Reaction of dizziness to LOSARTAN. Reaction of agitation to HYDROCODONE. SOCIAL HISTORY: The patient would like her daughter, Nora Patterson, to be her surrogate medical decision maker should she need one. Her phone number is [phone]. REVIEW OF SYSTEMS: An 11-point review of systems was completed and all pertinent positives and negatives are as above in the HPI. All other systems are negative. PHYSICAL EXAMINATION GENERAL: Thin, elderly white female, sitting upright in hospital bed, appearing comfortable, in no acute distress. HEENT: Head: Normocephalic, atraumatic. Eyes: PERRL. Sclerae anicteric. ENT: Mucous membranes moist. NECK: Supple. LUNGS: Faint crackles at bilateral lungs bases. Chest expansion symmetrical. Not respiring with accessary muscles. Some dyspnea after long periods of conversation. CARDIO: Regular rate and rhythm, without murmurs, rubs or gallops. ABDOMEN: Soft, nontender, nondistended without suprapubic tenderness. EXTREMITIES: +1 pedal edema bilaterally. No clubbing or cyanosis. NEUROLOGIC: The patient is alert and oriented x3. No focal deficits. Able to move all 4 extremities. SKIN: Warm, dry, and intact. DIAGNOSTIC STUDIES/LAB DATA: Chest x-ray appears, by my read, to have some vascular congestion similar to previous chest x-ray in 2017. Echocardiogram: Ventricularly paced rhythm, 80 beats per minute, which is changed from previous EKG in the system because the patient had pacemaker placed during the interval. White blood cells 7.2, hemoglobin 12.5, hematocrit 37, platelets 286. INR 1.96. Sodium 133, potassium 4.2, chloride 100, carbon dioxide 25, anion gap 8, BUN 24, creatinine 1.01, glucose 116. Total bili 0.5, AST 71, ALT 46. BNP 676. ASSESSMENT AND PLAN: Demi Garza is an 83-year-old white female with past medical history significant for heart failure with preserved ejection fraction; coronary artery disease, x7 stents; atrial fibrillation, status post pacemaker; hypertension; anxiety and depression, who presents to emergency department complaining of exertional shortness of breath. The patient will be admitted OBV for: 1. Decompensated congestive heart failure. The patient received 40 mg of IV Lasix in the emergency department. I will continue her home torsemide, lisinopril to replace a ramipril and atenolol. The patient was within the last 2 months discontinued her hydrochlorothiazide, which may be contributing to her decompensation of her congestive heart failure. However, she does have hyponatremia, which appears chronic, which would likely be worsened if thiazide was restarted. I have ordered a transthoracic echocardiogram to evaluate if there are any changes. BNP is elevated and she does have increased lower extremity edema. She also has crackles on lung exam. 2. Hypertension. The patient is hypertensive, multiple episodes during this ED department. I will continue her home atenolol and lisinopril instead of ramipril and I have ordered p.r.n. hydralazine for systolic blood pressure over 160. 3. Coronary artery disease. Continue the patient's p.r.n. nitroglycerin, Plavix, atenolol, and lisinopril in lieu of her home ramipril, and atorvastatin instead of her home simvastatin. 4. Atrial fibrillation. The patient is ventricularly paced at this moment. I will continue her home atenolol and Xarelto. 5. Gastroesophageal reflux disease. We will continue the patient's home Pepcid. 6. FEN. I have ordered heart healthy diet without caffeine and electrolytes. She has mild hypokalemia, which appears to be chronic and we will continue to monitor this. 7. DVT prophylaxis. The patient is fully anticoagulated on Xarelto. 8. Code status: The patient is DNR/DNI and her MOLST has been updated. TIME SPENT: Approximately 45 minutes was spent on this admission, approximately half of that time was spent at bedside. This case has been reviewed by attending, Dr. Gregory Barillas, and he agrees with plan of care. NAGA RAY [id number]/CPS #: [id number] [facility]PITALFrances
--- NOTE | 2018-12-13 17:29 | PN ---
Progress Note - Progress Note Date of Service: 12/13/18 Note: Patient seen and examined with Dr. Weller. Agree with assessment and plan as outlined in her note from today unless indicated here. Pt feels improved since admission after lasix Vital Signs - 8 hr 12/13/18 12:19 Temperature 97.2 F Pulse Rate 79 Respiratory 19 Rate Blood Pressure 165/91 (mmHg) O2 Sat by Pulse 100 Oximetry Appears stated age NAD lying flat in bed this afternoon OP clear Elevated JVD to angle of ear IRIR CTA b/l 1+ edema 6in above b/l ankles AOx3 Laboratory Results - last 24 hr 12/13/18 12/13/18 12/13/18 02:38 02:38 02:38 WBC 7.2 RBC 3.59 L Hgb 12.5 Hct 37 MCV 103 H MCH 35 H MCHC 34 RDW 15 Plt Count 286 MPV 6.8 L Neut % (Auto) 73.7 Lymph % (Auto) 14.5 [place] % (Auto) 9.7 Eos % (Auto) 1.2 Baso % (Auto) 0.9 Absolute Neuts (auto) 5.3 Absolute Lymphs (auto) 1.0 Absolute Monos (auto) 0.7 Absolute Eos (auto) 0.1 Absolute Basos (auto) 0.1 Absolute Nucleated RBC 0.0 Nucleated RBC % 0.0 INR (Anticoag Therapy) 1.96 H APTT 40.9 H Sodium 133 L Potassium 4.2 Chloride 100 L Carbon Dioxide 25 Anion Gap 8 BUN 24 Creatinine 1.01 H Est GFR ( Amer) 63.0 Est GFR (Non-Af Amer) 52.1 BUN/Creatinine Ratio 23.8 H Glucose 116 H Calcium 9.3 Total Bilirubin 0.50 AST 71 H ALT 46 Alkaline Phosphatase 111 H Troponin I 0.03 C-Reactive Protein 3.12 B-Natriuretic Peptide Total Protein 6.9 Albumin 4.0 Globulin 2.9 Albumin/Globulin Ratio 1.4 12/13/18 02:38 WBC RBC Hgb Hct MCV MCH MCHC RDW Plt Count MPV Neut % (Auto) Lymph % (Auto) [place] % (Auto) Eos % (Auto) Baso % (Auto) Absolute Neuts (auto) Absolute Lymphs (auto) Absolute Monos (auto) Absolute Eos (auto) Absolute Basos (auto) Absolute Nucleated RBC Nucleated RBC % INR (Anticoag Therapy) APTT Sodium Potassium Chloride Carbon Dioxide Anion Gap BUN Creatinine Est GFR ( Amer) Est GFR (Non-Af Amer) BUN/Creatinine Ratio Glucose Calcium Total Bilirubin AST ALT Alkaline Phosphatase Troponin I C-Reactive Protein B-Natriuretic Peptide 676 H Total Protein Albumin Globulin Albumin/Globulin Ratio A/P: 83 yo F admitted with SOB in setting of HFpEF HFpEF -lasix and monitor symptom improvement -atenolol, ramapril Afib - rate controlled and paced -eliquis -atenolol DVT ppx -eliquis
--- NOTE | 2018-12-13 17:52 | PN ---
Subjective Date of Service: 12/13/18 Interval History: Patient doesnot have any complain. He is doing well. Objective Active Medications: Acetaminophen (Tylenol Tab*) 650 mg PO Q4H PRN PRN Reason: FEVER/PAIN Al Hydrox/Mg Hydrox/Simethicone (Maalox Plus*) 30 ml PO Q6H PRN PRN Reason: INDIGESTION Atenolol (Tenormin Tab*) 50 mg PO BID [facility] Last Admin: 12/13/18 10:13 Dose: 50 mg Atorvastatin Calcium (Lipitor*) 10 mg PO DAILY [facility] Last Admin: 12/13/18 10:15 Dose: 10 mg Calcium/Vitamin D (Oscal D Tab 250/125*) 1 tab PO DAILY [facility] Last Admin: 12/13/18 10:15 Dose: 1 tab Clopidogrel Bisulfate (Plavix Tab*) 75 mg PO DAILY [facility] Last Admin: 12/13/18 10:13 Dose: 75 mg Famotidine (Pepcid Tab*) 20 mg PO BID [facility] Last Admin: 12/13/18 10:13 Dose: 20 mg Ferrous Sulfate (Ferrous Sulfate Tab*) 325 mg PO BID [facility] Last Admin: 12/13/18 10:15 Dose: 325 mg Fluticasone Propionate (Flonase Nasal [place] 50mcg*) 2 spray BOTH NARES 2100 [facility] Hydralazine HCl (Apresoline Iv*) 5 mg IV SLOW PU Q6H PRN PRN Reason: SYSTOLIC BP GREATER THAN: Multivitamins/Minerals (Theragran/Minerals Tab*) 1 tab PO DAILY [facility] Last Admin: 12/13/18 10:15 Dose: 1 tab Nitroglycerin (Nitroglycerin Tab 0.4 Mg*) 0.4 mg SL . NEEDED PRN PRN Reason: PAIN - CHEST Ondansetron HCl (Zofran Inj*) 4 mg IV Q4H PRN PRN Reason: NAUSEA/VOMITING Ramipril (Altace Cap*) 10 mg PO 1400 [facility] Last Admin: 12/13/18 13:15 Dose: 10 mg Rivaroxaban (Xarelto(*)) 20 mg PO 1400 [facility] Last Admin: 12/13/18 13:16 Dose: 20 mg Senna (Senokot Tab*) 1 tab PO BID PRN PRN Reason: CONSTIPATION Torsemide (Torsemide) 10 mg PO DAILY [facility] Last Admin: 12/13/18 10:13 Dose: 10 mg Zolpidem Tartrate (Ambien Tab*) 5 mg PO BEDTIME SENDY Vital Signs - 8 hr 12/13/18 12:19 Temperature 97.2 F Pulse Rate 79 Respiratory 19 Rate Blood Pressure 165/91 (mmHg) O2 Sat by Pulse 100 Oximetry Oxygen Devices in Use Now: None Exam: Patient is sitting on a bed comfortably. HEENT: Normocephalic, no any signs of trauma. PERRLA. Neuro: Alert, conscious and oriented. Cranial nerves intact. Motor and Sensory intact. CVS: Normal Respi: Normal breath sound heard. GI: Soft, Normal Bowel sound heard. Result Diagrams: 12/13/18 02:38 12/13/18 02:38 Additional Lab and Data: Lab Results 12/13/18 12/13/18 12/13/18 Range/Units 02:38 02:38 02:38 WBC 7.2 (3.5-10.8) 10^3/uL RBC 3.59 L (3.70-4.87) 10^6 /uL Hgb 12.5 (12.0-16.0) g/dL Hct 37 (35-47) % MCV 103 H (80-97) fL MCH 35 H (27-31) pg MCHC 34 (31-36) g/dL RDW 15 (10-15) % Plt Count 286 (150-450) 10^3/uL MPV 6.8 L (7.4-10.4) fL Neut % (Auto) 73.7 % Lymph % (Auto) 14.5 % [place] % (Auto) 9.7 % Eos % (Auto) 1.2 % Baso % (Auto) 0.9 % Absolute Neuts (auto) 5.3 (1.5-7.7) 10^3/ul Absolute Lymphs (auto) 1.0 (1.0-4.8) 10^3/ul Absolute Monos (auto) 0.7 (0-0.8) 10^3/ul Absolute Eos (auto) 0.1 (0-0.6) 10^3/ul Absolute Basos (auto) 0.1 (0-0.2) 10^3/ul Absolute Nucleated RBC 0.0 10^3/ul Nucleated RBC % 0.0 INR (Anticoag Therapy) 1.96 H (0.82-1.09) APTT 40.9 H (26.0-38.0) seconds Sodium 133 L (135-145) mmol/L Potassium 4.2 (3.5-5.0) mmol/L Chloride 100 L (101-111) mmol/L Carbon Dioxide 25 (22-32) mmol/L Anion Gap 8 (2-11) mmol/L BUN 24 (6-24) mg/dL Creatinine 1.01 H (0.51-0.95) mg/dL Est GFR ( Amer) 63.0 (>60) Est GFR (Non-Af Amer) 52.1 (>60) BUN/Creatinine Ratio 23.8 H (8-20) Glucose 116 H (70-100) mg/dL Calcium 9.3 (8.6-10.3) mg/dL Total Bilirubin 0.50 (0.2-1.0) mg/dL AST 71 H (13-39) U/L ALT 46 (7-52) U/L Alkaline Phosphatase 111 H (34-104) U/L Troponin I 0.03 (<0.04) ng/mL C-Reactive Protein 3.12 (<8.01) mg/L B-Natriuretic Peptide (<=100) pg/mL Total Protein 6.9 (6.4-8.9) g/dL Albumin 4.0 (3.2-5.2) g/dL Globulin 2.9 (2-4) g/dL Albumin/Globulin Ratio 1.4 (1-3) 12/13/18 Range/Units 02:38 WBC (3.5-10.8) 10^3/uL RBC (3.70-4.87) 10^6 /uL Hgb (12.0-16.0) g/dL Hct (35-47) % MCV (80-97) fL MCH (27-31) pg MCHC (31-36) g/dL RDW (10-15) % Plt Count (150-450) 10^3/uL MPV (7.4-10.4) fL Neut % (Auto) % Lymph % (Auto) % [place] % (Auto) % Eos % (Auto) % Baso % (Auto) % Absolute Neuts (auto) (1.5-7.7) 10^3/ul Absolute Lymphs (auto) (1.0-4.8) 10^3/ul Absolute Monos (auto) (0-0.8) 10^3/ul Absolute Eos (auto) (0-0.6) 10^3/ul Absolute Basos (auto) (0-0.2) 10^3/ul Absolute Nucleated RBC 10^3/ul Nucleated RBC % INR (Anticoag Therapy) (0.82-1.09) APTT (26.0-38.0) seconds Sodium (135-145) mmol/L Potassium (3.5-5.0) mmol/L Chloride (101-111) mmol/L Carbon Dioxide (22-32) mmol/L Anion Gap (2-11) mmol/L BUN (6-24) mg/dL Creatinine (0.51-0.95) mg/dL Est GFR ( Amer) (>60) Est GFR (Non-Af Amer) (>60) BUN/Creatinine Ratio (8-20) Glucose (70-100) mg/dL Calcium (8.6-10.3) mg/dL Total Bilirubin (0.2-1.0) mg/dL AST (13-39) U/L ALT (7-52) U/L Alkaline Phosphatase (34-104) U/L Troponin I (<0.04) ng/mL C-Reactive Protein (<8.01) mg/L B-Natriuretic Peptide 676 H (<=100) pg/mL Total Protein (6.4-8.9) g/dL Albumin (3.2-5.2) g/dL Globulin (2-4) g/dL Albumin/Globulin Ratio (1-3) Assess/Plan/Problems-Billing Assessment: 45 yo M with PMH of HTN AND HLD presented with c/o Slurring of sppech, left- sided weakness and left facial droop. He is admitted under diagnosis of Transient Ischemic Attack. Patient symptom has resolved. - Patient Problems (1) TIA (transient ischemic attack) Current Visit: Yes Status: Acute Code(s): G45.9 - TRANSIENT CEREBRAL ISCHEMIC ATTACK, UNSPECIFIED SNOMED Code(s): 816125148 Comment: Symptoms resolved. Patient is on aspirin and plavix. (2) Hyperlipidemia Current Visit: Yes Status: Acute Code(s): E78.5 - HYPERLIPIDEMIA, UNSPECIFIED SNOMED Code(s): 83526175 Comment: Cholesterol(LDL) not under control. Atorvastatin increased to 40 mg. (3) Hypertension Current Visit: No Status: Acute Priority: Medium Code(s): I10 - ESSENTIAL (PRIMARY) HYPERTENSION SNOMED Code(s): 79918188 Comment: Blood pressure is controlled. Continue home medication. (4) DVT prophylaxis Current Visit: No Status: Acute Priority: Medium Code(s): BJF6511 - SNOMED Code(s): 559867431 Comment: Ambulatory. Status and Disposition: Medicine inpatient.
--- NOTE | 2018-12-13 18:01 | PN ---
Subjective Date of Service: 12/13/18 Interval History: Pataient has SOB on exertion and talking. Complains about frequent diuresis. Objective Active Medications: Acetaminophen (Tylenol Tab*) 650 mg PO Q4H PRN PRN Reason: FEVER/PAIN Al Hydrox/Mg Hydrox/Simethicone (Maalox Plus*) 30 ml PO Q6H PRN PRN Reason: INDIGESTION Atenolol (Tenormin Tab*) 50 mg PO BID [facility] Last Admin: 12/13/18 10:13 Dose: 50 mg Atorvastatin Calcium (Lipitor*) 10 mg PO DAILY [facility] Last Admin: 12/13/18 10:15 Dose: 10 mg Calcium/Vitamin D (Oscal D Tab 250/125*) 1 tab PO DAILY [facility] Last Admin: 12/13/18 10:15 Dose: 1 tab Clopidogrel Bisulfate (Plavix Tab*) 75 mg PO DAILY [facility] Last Admin: 12/13/18 10:13 Dose: 75 mg Famotidine (Pepcid Tab*) 20 mg PO BID [facility] Last Admin: 12/13/18 10:13 Dose: 20 mg Ferrous Sulfate (Ferrous Sulfate Tab*) 325 mg PO BID [facility] Last Admin: 12/13/18 10:15 Dose: 325 mg Fluticasone Propionate (Flonase Nasal [place] 50mcg*) 2 spray BOTH NARES 2100 [facility] Hydralazine HCl (Apresoline Iv*) 5 mg IV SLOW PU Q6H PRN PRN Reason: SYSTOLIC BP GREATER THAN: Multivitamins/Minerals (Theragran/Minerals Tab*) 1 tab PO DAILY [facility] Last Admin: 12/13/18 10:15 Dose: 1 tab Nitroglycerin (Nitroglycerin Tab 0.4 Mg*) 0.4 mg SL . NEEDED PRN PRN Reason: PAIN - CHEST Ondansetron HCl (Zofran Inj*) 4 mg IV Q4H PRN PRN Reason: NAUSEA/VOMITING Ramipril (Altace Cap*) 10 mg PO 1400 [facility] Last Admin: 12/13/18 13:15 Dose: 10 mg Rivaroxaban (Xarelto(*)) 20 mg PO 1400 [facility] Last Admin: 12/13/18 13:16 Dose: 20 mg Senna (Senokot Tab*) 1 tab PO BID PRN PRN Reason: CONSTIPATION Torsemide (Torsemide) 10 mg PO DAILY [facility] Last Admin: 12/13/18 10:13 Dose: 10 mg Zolpidem Tartrate (Ambien Tab*) 5 mg PO BEDTIME [facility] Vital Signs - 8 hr 12/13/18 12/13/18 12:19 15:55 Temperature 97.2 F 98.3 F Pulse Rate 79 80 Respiratory 19 20 Rate Blood Pressure 165/91 145/90 (mmHg) O2 Sat by Pulse 100 97 Oximetry Oxygen Devices in Use Now: None Exam: Patient is sitting on a bed. Elevated JVD CVS: Normal heart sound heard. Respi: Mild crackles heard on left lung base. GI: Soft, normal bowel sound heard. Neuro: Alert, conscious and oriented Extremity: B/L swelling till distal 1/3rd of leg. Result Diagrams: 12/13/18 02:38 12/13/18 02:38 Assess/Plan/Problems-Billing Assessment: 83 y/o F with PMH of CAD, AF , HTN presented with c/o SOB and b/l leg swelling. Admitted with diagnosis of Heart failure probabaly due to Ischemic cardiomyopathy/AF. Patient is improving. - Patient Problems (1) Heart failure Current Visit: Yes Status: Acute Code(s): I50.9 - HEART FAILURE, UNSPECIFIED SNOMED Code(s): 81010312 Comment: Improving. Patient is on lasix iv. (2) Hypertension Current Visit: No Status: Acute Priority: Medium Code(s): I10 - ESSENTIAL (PRIMARY) HYPERTENSION SNOMED Code(s): 17781603 Comment: Blood pressure is controlled. Continue home medication. (3) Afib Current Visit: No Status: Acute Priority: High Code(s): I48.91 - UNSPECIFIED ATRIAL FIBRILLATION SNOMED Code(s): 23221290 Comment: with permanent pacemaker. (4) CAD (coronary artery disease) Current Visit: No Status: Chronic Priority: Medium Code(s): I25.10 - ATHSCL HEART DISEASE OF [place] CORONARY ARTERY W/O ANG PCTRS SNOMED Code(s): 74168636 Comment: CAD s/p 7 stents. Continue plavix, statin and atenolol and nitroglycerin prn. (5) DVT prophylaxis Current Visit: No Status: Acute Priority: Medium Code(s): FCS5204 - SNOMED Code(s): 331164629 Comment: Continue eliquis. Status and Disposition: Medicine inpatient. Attending: Chema Kathleen
[2018-12-13] MEDS ORDERED: Zolpidem TAB* 5 MG PO SCH (21:00)
[2018-12-14] MEDS: Atenolol TAB* 50 MG PO SCH (09:03)
[2018-12-14] MEDS: Torsemide TAB 10 MG PO SCH (09:03)
[2018-12-14] MEDS: Atorvastatin* 10 MG TAB PO SCH (09:04)
[2018-12-14] MEDS: Ferrous Sulfate TAB* 325 MG PO SCH (09:04)
[2018-12-14] MEDS: Clopidogrel TAB* 75 MG PO SCH (09:04)
[2018-12-14] MEDS: Famotidine TAB* 20 MG PO SCH (09:04)
[2018-12-14] MEDS: Calcium/Vitamin D TAB 250/125* TAB PO SCH (09:05)
[2018-12-14] MEDS: Multivitamins/Minerals TAB PO SCH (09:05)
[2018-12-14 09:07] LABS: Calcium 9.2 mg/dL (8.6-10.3); EGFR African American 63.8 (>60); EGFR Non-African American 52.7 (>60); Potassium 3.2 mmol/L (3.5-5.0)
[2018-12-14] MEDS ORDERED: Potassium Chlor TAB* 20 MEQ TAB.ER PO ONE (09:45)
[2018-12-14 09:57] LABS: Magnesium 1.5 mg/dL (1.9-2.7)
[2018-12-14 12:44] VITALS: BP 142/83
[2018-12-14] MEDS: Rivaroxaban TAB(*) 20 MG TAB PO SCH (13:59)
[2018-12-14] MEDS: Ramipril CAP* 10 MG PO SCH (13:59)
[2018-12-14] MEDS ORDERED: Magnesium Sulfate 2 GM IV* 2 GM/50 ML BAG IVPB ONE (14:26)
[2018-12-14] MEDS ORDERED: Potassium Chlor TAB* 10 MEQ TAB.ER PO ONE (14:26)
--- NOTE | 2018-12-14 16:21 | ECHO ---
*[facility]* [place] [address] Fax #: [phone] Echocardiogram Patient: Demi Garza : 1935 Study Date: 12/14/2018 Age: 83 Gender: F HR: 80 bpm Height: 62 in /157.5 cm BSA: 1.62 m^2 Weight: 129.7 lb /59 kg BMI: 23.8 kg/m^2 *Coding Technician: Kirsten Olivarez RDCS RN *Referring Physician: * O'Taylor Marin *Reading Physician: * Armond Cervantes MD Indications: SOB. History: Atrial fibrillation. Breast cancer. Coronary artery disease. Risk factors: Hypertension. Labs, prior tests, procedures, and surgery: Permanent pacemaker system implantation. Conclusions Summary: 1. Left ventricle: The cavity size is mildly reduced. Wall thickness is mildly to moderately increased. Systolic function is at the lower limits of normal. The estimated ejection fraction is 50-55%. Wall motion is normal; there are no regional wall motion abnormalities. 2. Mitral valve: There is mild regurgitation. 3. Aortic valve: There is no evidence of stenosis. There is mild regurgitation. 4. Tricuspid valve: There is moderate regurgitation. 5. Pulmonary arteries: Systolic pressure is mildly increased, estimated to be 37 mm Hg. 6. Compared to study of 12/21/15, there is little change. Study data: Echocardiogram. Procedure: Transthoracic echocardiography was performed. Image quality was fair. Complete 2D, spectral Doppler, and color flow Doppler. Location: Procedure room. Patient status: Observation. Patient room number: 448-01. Rhythm: Paced rhythm. Findings Left ventricle: The cavity size is mildly reduced. Wall thickness is mildly to moderately increased. Systolic function is at the lower limits of normal. The estimated ejection fraction is 50-55%. Wall motion is normal; there are no regional wall motion abnormalities. Doppler parameters are consistent with abnormal left ventricular relaxation (grade 1 diastolic dysfunction). Right ventricle: The cavity size is normal. Wall thickness is mildly increased. Pacer wire noted in the right ventricle. Systolic function is normal. Left atrium: The atrium is moderately dilated. Right atrium: The atrium is moderately dilated. Pacer wire noted in right atrium. Mitral valve: The leaflets are mildly thickened. There is no evidence of stenosis. There is mild regurgitation. Aortic valve: The valve is trileaflet. The leaflets are mildly thickened. There is no evidence of stenosis. There is mild regurgitation. Tricuspid valve: The valve is structurally normal. There is no evidence of stenosis. There is moderate regurgitation. Pulmonic valve: The valve is structurally normal. There is no evidence of stenosis. There is mild to moderate regurgitation. Aorta: Aortic root: The aortic root is not dilated. Ascending aorta: The ascending aorta is not visualized. Aortic arch: The aortic arch is not dilated. Pericardium: There is no significant pericardial effusion. Pulmonary arteries: The main pulmonary artery is normal-sized. Systolic pressure is mildly increased, estimated to be 37 mm Hg. Systemic veins: Inferior vena cava: The vessel is normal in size. The respirophasic diameter changes are in the normal range (>= 50%). Measurements Left ventricle Value Ref Aortic valve Value Ref DANTE, LAX (L) 3.7 cm 3.8 - Peak v, S 1.02 m/sec ----- 5.2 VTI, S 18.7 cm ----- ESD, LAX 2.5 cm 2.2 - Mean grad, S 3.0 mm Hg ----- 3.5 Peak grad, S 4.2 mm Hg ----- FS, LAX 30 % 27 - 45 LVOT/AV, VTI ratio 0.74 ----- PW, ED (H) 1.2 cm 0.6 - AR peak v 3.88 m/sec ----- 0.9 AR decel time 1981 ms ----- IVS/PW, ED 1.21 -------- AR PHT 575 ms ----- PW/ID, ED 0.33 -------- AR peak grad 60 mm Hg ----- E', lat keshav, TDI (L) 7.0 cm/sec >=10.0 E/e', lat keshav, TDI 11 -------- Mitral valve Value Ref E', med keshav, TDI (L) 5.0 cm/sec >=7.0 Peak E 0.74 m/sec --- -- E/e', med keshav, TDI 15 -------- Peak A 0.23 m/sec ----- E', avg, TDI 6.0 cm/sec -------- Decel time 173 ms ----- E/e', avg, TDI 12 <=14 Peak grad, D 2.2 mm Hg --- -- Peak E/A ratio 3.25 ----- LVOT Value Ref Peak ted, S 0.84 m/sec -------- Pulmonic valve Value Ref VTI, S 13.9 cm -------- Peak v, S 0.66 m/sec ----- Peak grad, S 3 mm Hg -------- Peak grad, S 1.7 mm Hg ----- Mean grad, S 2 mm Hg -------- Tricuspid valve Value Ref Ventricular septum Value Ref TR peak v (H) 2.9 m/sec <=2.8 IVS, ED (H) 1.5 cm 0.6 - Peak RV-RA grad, S 34 mm Hg ----- 0.9 Aortic root Value Ref Right ventricle Value Ref Root diam 3.2 cm <3.9 AW thickness, ED (H) 0.7 cm 0.1 - 0.5 Aortic arch Value Ref AW thickness, ES 0.7 cm -------- Arch diam 2.8 cm ----- DANTE major ax, A4C (L) 3.7 cm 5.9 - 8.3 Decending aorta Value Ref Rosalva peak ted 0.24 m/sec ----- Left atrium Value Ref SI dim ES, LAX 3.8 cm -------- Inferior vena cava Value Ref ML dim, A4C 4.2 cm -------- Diam 1.8 cm ----- SI dim, A4C 6.2 cm -------- Vol, ES, 2-p 72 ml -------- Vol/bsa, ES, 2-p (H) 45 ml/m^2 16 - 34 Right atrium Value Ref ML dim, ES, A4C (H) 4.9 cm 2.6 - 4.4 SI dim, ES, A4C (H) 5.5 cm 3.4 - 5.3 SI dim/bsa, ES, (H) 3.4 cm/m^2 1.9 - A4C 3.1 Estimated RAP 3 mm Hg -------- Legend: (L) and (H) adrian values outside specified reference range. Prepared and electronically signed by Armond Cervantes MD 12/14/2018 16:20
--- NOTE | 2018-12-14 18:14 | DS ---
<Jose De Jesus Weller - Last Filed: 12/14/18 18:04> Resident Discharge Summary Discharge Summary: Date of Admission: 12/13/18 Date of Discharge: Admitting MD: Gregory Barillas MD Attending MD: Sakina Comer MD Primary Care Physician: Rhiannon Astorga MD Home Medications Medication Instructions Recorded Confirmed Type Clopidogrel TAB* [Plavix TAB*] 75 mg PO DAILY 12/21/15 12/13/18 History Pepcid 20 mg PO BID 12/21/15 12/13/18 History Tramadol HCl/Acetaminophen 1 tab PO Q6HR PRN 12/21/15 12/13/18 History [Ultracet Tablet] Zocor 20 MG (NF) 20 mg PO DAILY 12/21/15 12/13/18 History Zolpidem TAB* 5 mg PO BEDTIME 12/21/15 12/13/18 History Rivaroxaban TAB(*) [Xarelto 20 mg] 20 mg PO DAILY #30 tab 12/22/15 12/13/18 Rx Atenolol TAB* [Tenormin TAB* 25 MG] 50 mg PO BID 03/25/16 12/13/18 History Fluticasone NASAL SPRAY 50MCG* 2 spray BOTH NARES DAILY 03/25/16 12/13/18 History [Flonase NASAL SPRAY 50MCG*] Multiple Vitamin [Multi Vitamin] 1 tab PO DAILY 03/25/16 12/13/18 History Nitroglycerin TAB 0.4 MG* 0.4 mg SL . NEEDED PRN MDD 3 03/25/16 12/13/18 History Pumpkin Seed Extract/Soy Germ [Azo 1 tab PO BID 03/25/16 12/13/18 History Bladder Control Capsule] Ramipril CAP* [Altace CAP*] 10 mg PO DAILY 03/25/16 12/13/18 History Calcium + D Soft Chewable Tab 1 tab PO DAILY 12/13/18 12/13/18 History Diclofenac 1% GEL (NF) [Voltaren 1 applic TOPICAL QID 12/13/18 12/13/18 History 1% GEL (NF)] Ferrous Sulfate TAB* 325 mg PO BID 12/13/18 12/13/18 History Torsemide 10 mg PO DAILY 12/13/18 12/13/18 History Disposition: Home Condition: Improved Primary Diagnosis: Acute exacerbation of Congestive Heart Failure. Secondary Diagnosis: Hypokalemia Hypomagnesemia Diagnostic Imaging: Chest X-Ray: Cardiomegaly with chronic pleural changes in left CP angle. Pacemaker leads in place.Mild interstitial edema noted. Echo: Normal Ejection fractio(50-55%) with diastolic dysfuction. No RWMA. Pertinent Laboratory Results: Potassium: 3.2 Magnesium: 1.5 BNP: 676 Creatinine: 1.00 INR: 1.96 APTT: 40.9 Hospital Course: 83 y/o F with PMH of CAD, AF , HTN presented with c/o SOB and b/l leg swelling. Admitted with diagnosis of Heart failure. Patient improved with lasix. She had hypokalemia and hypomagnesemia but it was repleted with K and Mg. Follow Up Instructions: In case of an emergency or after clinic hours, please go to your nearest Emergency Department. You may also call the [facility] road equipment operator at ( [phone]. F/U with urban design consultant in 2 weeks. F/U with PCP in 1 week. Counselled about intake of low processsed food and regular intake of her medicine. Daily weight mesurement. <Sakina Comer - Last Filed: 12/15/18 21:33> Resident Discharge Summary Discharge Summary: Date of Admission: 12/13/18 Date of Discharge: 12/14/18 Admitting MD: Gregory Barillas MD Attending MD: Sakina Comer MD Primary Care Physician: Rhiannon Astorga MD Home Medications Medication Instructions Recorded Confirmed Type Clopidogrel TAB* [Plavix TAB*] 75 mg PO DAILY 12/21/15 12/13/18 History Pepcid 20 mg PO BID 12/21/15 12/13/18 History Tramadol HCl/Acetaminophen 1 tab PO Q6HR PRN 12/21/15 12/13/18 History [Ultracet Tablet] Zocor 20 MG (NF) 20 mg PO DAILY 12/21/15 12/13/18 History Zolpidem TAB* 5 mg PO BEDTIME 12/21/15 12/13/18 History Rivaroxaban TAB(*) [Xarelto 20 mg] 20 mg PO DAILY #30 tab 12/22/15 12/13/18 Rx Atenolol TAB* [Tenormin TAB* 25 MG] 50 mg PO BID 03/25/16 12/13/18 History Fluticasone NASAL SPRAY 50MCG* 2 spray BOTH NARES DAILY 03/25/16 12/13/18 History [Flonase NASAL SPRAY 50MCG*] Multiple Vitamin [Multi Vitamin] 1 tab PO DAILY 03/25/16 12/13/18 History Nitroglycerin TAB 0.4 MG* 0.4 mg SL . NEEDED PRN MDD 3 03/25/16 12/13/18 History Pumpkin Seed Extract/Soy Germ [Azo 1 tab PO BID 03/25/16 12/13/18 History Bladder Control Capsule] Ramipril CAP* [Altace CAP*] 10 mg PO DAILY 03/25/16 12/13/18 History Calcium + D Soft Chewable Tab 1 tab PO DAILY 12/13/18 12/13/18 History Diclofenac 1% GEL (NF) [Voltaren 1 applic TOPICAL QID 12/13/18 12/13/18 History 1% GEL (NF)] Ferrous Sulfate TAB* 325 mg PO BID 12/13/18 12/13/18 History Torsemide 10 mg PO DAILY 12/13/18 12/13/18 History Hospital Course: Patient diuresed appropriately. She may have been missing diuretic doses at home , as she did not want to have to use the restroom if she would be out for the day. Daily medication adherence was stressed, and she was instructed to weigh herself daily. If she notices her weight increasing again, she should take a double-dose of torsemide and call her PCP. Follow Up Instructions: In case of an emergency or after clinic hours, please go to your nearest Emergency Department. You may also call the [facility] road equipment operator at .
== END 2018-12-14 17:55 | disposition home or self-care (01) ==
LOC: ED 23:13 → MEDTELE 12-13 06:10
PROVIDERS: ADMIT Internal Medicine; ATTEND Internal Medicine
DX: I50.9 Heart failure, unspecified (principal); I11.0 Hypertensive heart disease with heart failure; R06.02 Shortness of breath; I48.91 Unspecified atrial fibrillation; D64.9 Anemia, unspecified; I10 Essential (primary) hypertension; K21.9 Gastro-esophageal reflux disease without esophagitis; L98.499 Non-pressure chronic ulcer of skin of other sites with unspecified severity; E87.6 Hypokalemia; E83.42 Hypomagnesemia; I25.10 Atherosclerotic heart disease of native coronary artery without angina pectoris; R60.0 Localized edema; Z85.3 Personal history of malignant neoplasm of breast; C18.9 Malignant neoplasm of colon, unspecified; Z92.21 Personal history of antineoplastic chemotherapy; Z95.5 Presence of coronary angioplasty implant and graft; Z95.0 Presence of cardiac pacemaker; M48.061 Spinal stenosis, lumbar region without neurogenic claudication; M19.90 Unspecified osteoarthritis, unspecified site; Z86.718 Personal history of other venous thrombosis and embolism; Z79.899 Other long term (current) drug therapy
CPT/HCPCS: 36415; 71045; 80048; 80053; 83735; 83880; 84484; 85025; 85610; 85730; 86140; 93005; 93306; 99283; A9270-GY; G0378; J1940; J3475

== ENCOUNTER 2021-05-03 20:01 | Inpatient (IN) ==
[2021-05-03] MEDS ORDERED: Prothrombin Complex Conc. DOSE = Units Factor IX (nine) IV SLOW PU ONE (22:22)
[2021-05-03 23:13] LABS: Hematocrit 18 % (35-47); Hemoglobin 6.4 g/dL (12.0-16.0); Mean Corpuscular HGB Conc 35 g/dL (31-36); Mean Corpuscular Hemoglobin 39 pg (27-31); Mean Corpuscular Volume 112 fL (80-97); Mean Platelet Volume 6.1 fL (7.4-10.4); Platelet Count 302 10^3/uL (150-450); Red Blood Count 1.63 10^6 /uL (3.70-4.87); Red Cell Distribution Width 19 % (10-15); White Blood Count 7.5 10^3/uL (3.5-10.8)
[2021-05-03 23:21] LABS: ABS Eosinophils 0.1 10^3/ul (0-0.6); ABS Lymphocytes 0.8 10^3/ul (1.0-4.8); ABS Monocytes 0.9 10^3/ul (0-0.8); ABS Neutrophils 5.7 10^3/ul (1.5-7.7); Eosinophil % 0.9 %; Lymphocyte % 10.7 %; Nucleated Red Blood Cells % 0.5
[2021-05-03 23:25] LABS: ALT 12 U/L (7-52); AST 27 U/L (13-39); Albumin 3.3 g/dL (3.2-5.2); Albumin/Globulin Ratio 1.5 (1-3); Alkaline Phosphatase 41 U/L (35-149); Anion Gap 9 mmol/L (2-11); Blood Urea Nitrogen 42 mg/dL (6-24); CO2 Carbon Dioxide 22 mmol/L (22-32); Calcium 8.3 mg/dL (8.6-10.3); Chloride 98 mmol/L (101-111); Globulin 2.2 g/dL (2-4); Glucose 114 mg/dL (70-100); Potassium 4.3 mmol/L (3.5-5.0); Sodium 129 mmol/L (135-145); Total Protein 5.5 g/dL (6.4-8.9); eGFR CKD-EPI 42.7 (>60)
[2021-05-03 23:38] LABS: Activated Partial Thrombo Time 32.8 seconds (26.0-38.0); INR 3.23 (0.86-1.15)
[2021-05-03 23:44] LABS: Troponin I 0.04 ng/mL (<0.03)
[2021-05-04 00:01] LABS: TSH Ultra Thyroid Stim Horm 5.46 mcIU/mL (0.34-5.60)
[2021-05-04 00:28] LABS: Macrocytosis 2+; Polychromasia 1+
[2021-05-04 00:29] LABS: Anisocytosis 2+; Basophilic Stippling 1+
[2021-05-04 00:52] LABS: Urine Appearance Clear; Urine Bilirubin Negative (Negative); Urine Blood 1+ (Negative); Urine Color Yellow; Urine Glucose Negative (Negative); Urine Ketones Negative (Negative); Urine Nitrite Negative (Negative); Urine Protein Negative (Negative); Urine Specific Gravity 1.011 (1.002-1.030); Urine Urobilinogen Negative (Negative)
[2021-05-04 01:03] LABS: Urine Bacteria 1+ (Absent); Urine Red Blood Cell Absent (Absent); Urine Squamous Epithelial Cell Present (Absent); Urine White Blood Cell Trace(0-5/hpf) (Absent)
[2021-05-04] MEDS ORDERED: Pantoprazole VIAL 40 MG VIAL IV ONE (01:31)
[2021-05-04] MEDS ORDERED: Ondansetron 4 mg VIAL 2 MG/ML 2 ml VIAL IV PRN (01:31)
[2021-05-04] MEDS: Pantoprazole 80 mg in NS BAG 80 MG/250 ML BAG IV SCH ×2 (03:35→13:47)
[2021-05-04 04:17] LABS: Rapid COVID-19 Molecular Undetected (Undetected)
[2021-05-04 04:19] LABS: Troponin I 0.04 ng/mL (<0.03)
[2021-05-04 06:41] LABS: Troponin I 0.03 ng/mL (<0.03)
[2021-05-04 10:21] LABS: ABS Basophils 0.1 10^3/ul (0-0.2); ABS Eosinophils 0.1 10^3/ul (0-0.6); ABS Lymphocytes 0.7 10^3/ul (1.0-4.8); ABS Monocytes 0.9 10^3/ul (0-0.8); ABS Neutrophils 4.7 10^3/ul (1.5-7.7); Eosinophil % 1.6 %; Hematocrit 25 % (35-47); Hemoglobin 8.4 g/dL (12.0-16.0); Lymphocyte % 10.1 %; Mean Corpuscular HGB Conc 34 g/dL (31-36); Mean Corpuscular Hemoglobin 35 pg (27-31); Mean Corpuscular Volume 104 fL (80-97); Mean Platelet Volume 6.1 fL (7.4-10.4); Nucleated Red Blood Cells % 0.2; Platelet Count 279 10^3/uL (150-450); Red Blood Count 2.38 10^6 /uL (3.70-4.87); Red Cell Distribution Width 21 % (10-15); White Blood Count 6.5 10^3/uL (3.5-10.8)
[2021-05-04 10:26] LABS: INR 1.88 (0.86-1.15)
[2021-05-04 10:36] LABS: eGFR CKD-EPI 48.3 (>60)
[2021-05-04] MEDS ORDERED: fentaNYL 100 mcg/2 ml 50 MCG/ML VIAL ONE (13:08)
[2021-05-04] MEDS ORDERED: Midazolam 10 mg/10 ml VIAL 1 mg/ml 10 ml VIAL (10 mg) ONE (13:08)
[2021-05-05 02:10] LABS: Hematocrit 26 % (35-47); Hemoglobin 8.8 g/dL (12.0-16.0)
[2021-05-05] MEDS: Pantoprazole 80 mg in NS BAG 80 MG/250 ML BAG IV SCH ×3 (02:22→18:26)
[2021-05-05 06:29] LABS: ABS Basophils 0.1 10^3/ul (0-0.2); ABS Eosinophils 0.2 10^3/ul (0-0.6); ABS Lymphocytes 0.6 10^3/ul (1.0-4.8); ABS Monocytes 0.9 10^3/ul (0-0.8); Eosinophil % 2.7 %; Hematocrit 24 % (35-47); Hemoglobin 8.4 g/dL (12.0-16.0); Lymphocyte % 8.6 %; Mean Corpuscular HGB Conc 35 g/dL (31-36); Mean Corpuscular Hemoglobin 36 pg (27-31); Mean Corpuscular Volume 105 fL (80-97); Nucleated Red Blood Cells % 0.1; Platelet Count 268 10^3/uL (150-450); Red Blood Count 2.32 10^6 /uL (3.70-4.87); Red Cell Distribution Width 22 % (10-15); White Blood Count 6.7 10^3/uL (3.5-10.8)
[2021-05-05 06:45] LABS: Calcium 8.3 mg/dL (8.6-10.3); Potassium 3.9 mmol/L (3.5-5.0); eGFR CKD-EPI 46.3 (>60)
[2021-05-05 13:16] LABS: Hematocrit 29 % (35-47); Hemoglobin 9.8 g/dL (12.0-16.0)
[2021-05-05 23:32] LABS: ABS Basophils 0.1 10^3/ul (0-0.2); ABS Eosinophils 0.1 10^3/ul (0-0.6); ABS Lymphocytes 0.8 10^3/ul (1.0-4.8); ABS Monocytes 1.1 10^3/ul (0-0.8); ABS Neutrophils 5.3 10^3/ul (1.5-7.7); Eosinophil % 1.9 %; Hematocrit 26 % (35-47); Hemoglobin 8.8 g/dL (12.0-16.0); Lymphocyte % 10.6 %; Nucleated Red Blood Cells % 0.1; Red Blood Count 2.46 10^6 /uL (3.70-4.87); White Blood Count 7.4 10^3/uL (3.5-10.8)
[2021-05-05 23:39] LABS: Anion Gap 6 mmol/L (2-11); Blood Urea Nitrogen 31 mg/dL (6-24); CO2 Carbon Dioxide 22 mmol/L (22-32); Calcium 8.4 mg/dL (8.6-10.3); Chloride 104 mmol/L (101-111); Glucose 135 mg/dL (70-100); Potassium 4.1 mmol/L (3.5-5.0); Sodium 132 mmol/L (135-145); eGFR CKD-EPI 39.9 (>60)
[2021-05-05 23:59] LABS: Troponin I 0.05 ng/mL (<0.03)
[2021-05-06 00:43] LABS: Anisocytosis 2+; Basophilic Stippling 1+; Macrocytosis 1+; Microcytosis 1+; Polychromasia 2+
[2021-05-06 00:45] LABS: Mean Corpuscular HGB Conc 34 g/dL (31-36); Mean Corpuscular Hemoglobin 36 pg (27-31); Mean Corpuscular Volume 106 fL (80-97); Mean Platelet Volume 6.2 fL (7.4-10.4); Platelet Count 284 10^3/uL (150-450); Red Cell Distribution Width 22 % (10-15)
[2021-05-06 02:57] LABS: Troponin I 0.06 ng/mL (<0.03)
[2021-05-06] MEDS: Pantoprazole 80 mg in NS BAG 80 MG/250 ML BAG IV SCH ×2 (05:17→15:23)
[2021-05-06 06:12] LABS: ABS Basophils 0.1 10^3/ul (0-0.2); ABS Eosinophils 0.1 10^3/ul (0-0.6); ABS Lymphocytes 0.7 10^3/ul (1.0-4.8); ABS Monocytes 1.1 10^3/ul (0-0.8); ABS Neutrophils 5.3 10^3/ul (1.5-7.7); Eosinophil % 1.9 %; Hematocrit 25 % (35-47); Hemoglobin 8.4 g/dL (12.0-16.0); Lymphocyte % 9.7 %; Mean Corpuscular HGB Conc 34 g/dL (31-36); Mean Corpuscular Hemoglobin 36 pg (27-31); Mean Corpuscular Volume 106 fL (80-97); Mean Platelet Volume 6.1 fL (7.4-10.4); Nucleated Red Blood Cells % 0.1; Platelet Count 269 10^3/uL (150-450); Red Blood Count 2.33 10^6 /uL (3.70-4.87); Red Cell Distribution Width 22 % (10-15); White Blood Count 7.3 10^3/uL (3.5-10.8)
[2021-05-06 06:29] LABS: Calcium 8.2 mg/dL (8.6-10.3); eGFR CKD-EPI 41.1 (>60)
[2021-05-06 07:27] LABS: Troponin I 0.05 ng/mL (<0.03)
[2021-05-07] MEDS: Pantoprazole 80 mg in NS BAG 80 MG/250 ML BAG IV SCH ×2 (02:42→13:21)
[2021-05-07 07:54] LABS: ABS Basophils 0.1 10^3/ul (0-0.2); ABS Eosinophils 0.2 10^3/ul (0-0.6); ABS Lymphocytes 0.7 10^3/ul (1.0-4.8); ABS Monocytes 0.8 10^3/ul (0-0.8); ABS Neutrophils 5.1 10^3/ul (1.5-7.7); Eosinophil % 3.1 %; Hematocrit 24 % (35-47); Hemoglobin 8.2 g/dL (12.0-16.0); Lymphocyte % 9.6 %; Mean Corpuscular HGB Conc 34 g/dL (31-36); Mean Corpuscular Hemoglobin 36 pg (27-31); Mean Corpuscular Volume 106 fL (80-97); Platelet Count 257 10^3/uL (150-450); Red Cell Distribution Width 21 % (10-15); White Blood Count 6.8 10^3/uL (3.5-10.8)
[2021-05-07] MEDS ORDERED: Naloxone 0.4 mg VIAL 0.4 mg/ml 1 ml VIAL ONE (13:18)
[2021-05-07] MEDS ORDERED: fentaNYL 100 mcg/2 ml 50 MCG/ML VIAL ONE (13:18)
[2021-05-07] MEDS ORDERED: Flumazenil 0.5 mg/5 ml 0.1 MG/ML 5 ml VIAL ONE (13:18)
[2021-05-07] MEDS ORDERED: Midazolam 5 mg/5 ml VIAL 1 mg/ml 5 ml VIAL (5 mg) ONE (13:18)
[2021-05-07] MEDS ORDERED: PEG 3000 GI LAVAGE 1 GALLON PO ONE (17:00)
[2021-05-07] MEDS: Pantoprazole VIAL 40 MG VIAL IV SCH (21:11)
[2021-05-08] MEDS: Pantoprazole VIAL 40 MG VIAL IV SCH ×2 (07:41→19:49)
[2021-05-08] MEDS ORDERED: fentaNYL 100 mcg/2 ml 50 MCG/ML VIAL ONE (15:39)
[2021-05-08] MEDS ORDERED: Midazolam 10 mg/10 ml VIAL 1 mg/ml 10 ml VIAL (10 mg) ONE (15:39)
[2021-05-08] MEDS ORDERED: PEG 3000 GI LAVAGE 1 GALLON PO ONE ×2 (17:51→20:00)
[2021-05-08] MEDS ORDERED: Iron Sucrose 20 MG/ML 5 ML VIAL IV PUSH SCH (18:00)
[2021-05-08] MEDS: Iron Sucrose 200 MG in NS 0.9% 100 ml IVPB SCH (19:49)
[2021-05-09 06:27] LABS: ABS Basophils 0.1 10^3/ul (0-0.2); ABS Eosinophils 0.1 10^3/ul (0-0.6); ABS Lymphocytes 0.5 10^3/ul (1.0-4.8); ABS Monocytes 0.6 10^3/ul (0-0.8); ABS Neutrophils 5.7 10^3/ul (1.5-7.7); Hematocrit 28 % (35-47); Hemoglobin 9.3 g/dL (12.0-16.0); Lymphocyte % 6.7 %; Mean Corpuscular HGB Conc 34 g/dL (31-36); Mean Corpuscular Hemoglobin 36 pg (27-31); Mean Corpuscular Volume 105 fL (80-97); Platelet Count 270 10^3/uL (150-450); Red Blood Count 2.63 10^6 /uL (3.70-4.87); Red Cell Distribution Width 20 % (10-15); White Blood Count 6.9 10^3/uL (3.5-10.8)
[2021-05-09 06:51] LABS: Calcium 8.2 mg/dL (8.6-10.3); Potassium 3.2 mmol/L (3.5-5.0); eGFR CKD-EPI 48.9 (>60)
[2021-05-09] MEDS ORDERED: Potassium Chlor 20 meq TAB.ER PO ONE (08:51)
[2021-05-09] MEDS: Iron Sucrose 200 MG in NS 0.9% 100 ml IVPB SCH (09:58)
[2021-05-09] MEDS: Pantoprazole VIAL 40 MG VIAL IV SCH ×2 (10:01→20:27)
[2021-05-09 16:28] LABS: Magnesium 1.4 mg/dL (1.9-2.7)
[2021-05-09] MEDS ORDERED: fentaNYL 100 mcg/2 ml 50 MCG/ML VIAL ONE (16:44)
[2021-05-09] MEDS ORDERED: Midazolam 10 mg/10 ml VIAL 1 mg/ml 10 ml VIAL (10 mg) ONE (16:44)
[2021-05-09] MEDS ORDERED: Magnesium Sulfate IV 3 GM in NS 0.9% 100 ml BAG 100 ML IVPB ONE (21:15)
[2021-05-10 05:59] LABS: Calcium 8.5 mg/dL (8.6-10.3); Magnesium 2.2 mg/dL (1.9-2.7); Potassium 3.9 mmol/L (3.5-5.0); eGFR CKD-EPI 41.9 (>60)
[2021-05-10] MEDS: Pantoprazole VIAL 40 MG VIAL IV SCH (10:35)
[2021-05-10] MEDS: Iron Sucrose 200 MG in NS 0.9% 100 ml IVPB SCH (11:39)
[2021-05-10 16:04] VITALS: BP 104/49
== END 2021-05-10 19:05 | disposition home or self-care (01) | DRG 812 ==
LOC: ED 20:01 → SUATTDRO 05-04 01:24 → EDHOLD 05-04 01:24 → MEDTELE 05-04 20:38 → MED 05-07 22:30 → UNDODISIN 05-10 16:43
PROVIDERS: ADMIT Hospitalist; ATTEND Internal Medicine